=== PATIENT | female | born 1980 ===

== ENCOUNTER → 2020-02-18 10:36 | Outpatient (BNVA) | payer OTHER, SELFPAY | PROVIDERS: PCP Internal Medicine; Referring Provider Internal Medicine; Visit Provider Nurse Practitioner | DX: Z76.89 Persons encountering health services in other specified circumstances (principal) ==

== ENCOUNTER 2020-03-11 16:20 | Outpatient (REF) | payer OTHER, SELFPAY ==
--- NOTE | 2020-03-11 16:23 | MM_ITS ---
EXAMINATION: MM SCREENING DIGITAL MAMMOGRAPHY, BILATERAL CLINICAL INFORMATION: Screening. Asymptomatic. Age 39. No prior breast imaging. No family history history breast cancer. The lifetime risk of breast cancer based on the Tyrer-Cuzick Model is 12%. COMPARISON: None (current study represents initial baseline exam). TECHNIQUE: Digital mammography is performed in craniocaudal and mediolateral oblique views along with computer-aided detection (CAD). FINDINGS: The breasts are heterogeneously dense, which may obscure small masses (ACR BI-RADS breast composition Category c). There are no significant masses, abnormal calcifications, or other abnormalities. The axilla and skin contours are unremarkable. MM/MM screening mammo BI IMPRESSION: No mammographic evidence of malignancy. ASSESSMENT: BI-RADS 1: Negative RECOMMENDATION: Routine annual mammography screening. This patient's information was entered into a reminder system with a target due date for their next mammogram.
== END 2020-03-11 16:21 | disposition home or self-care (01) ==
LOC: HO.MAMMO 16:20
PROVIDERS: Visit Provider Internal Medicine
DX: Z12.31 Encounter for screening mammogram for malignant neoplasm of breast (principal)
CPT/HCPCS: 77067

== ENCOUNTER 2020-04-16 07:42 | Outpatient (REF) | payer OTHER, SELFPAY ==
--- NOTE | 2020-04-16 | US_ITS ---
EXAMINATION: US THYROID CLINICAL INFORMATION: Nontoxic multinodular goiter. COMPARISON: Ultrasound soft tissue head/neck thyroid dated 03/18/2019 and 03/28/2018 TECHNIQUE: Linear transducer thomas-scale and color Doppler examination with attention to the region of the thyroid. FINDINGS: SIZE: Measurements of the thyroid lobes and nodules are given in sagittal, anteroposterior and transverse dimensions respectively. Right Thyroid Lobe: 6.4 x 2.3 x 2.0 cm, volume 15.4 mL. Previously 5.8 x 2.3 x 2.1 cm, volume 14.7 mL. Parenchyma: The gland echotexture is heterogeneous. Thyroid vascularity is increased. Left Thyroid Lobe: 6.3 x 2.1 x 2.1 cm, volume 14.5 mL. Previously 5.8 x 1.9 x 2.2 cm, volume 12.7 mL. Parenchyma: The gland echotexture is heterogeneous. Thyroid vascularity is increased. Isthmus: 1.1 cm in maximum AP dimension. Previously 1.0 cm. RIGHT THYROID LOBE: There are 2 nodules seen. 1. Location: Superior. Size: 0.4 x 0.3 x 0.4 cm. Previous: New since the previous study. Nodule characteristics: Hyperechoic, irregular margins with intranodular flow. 2. Location: Middle. Size: 0.8 x 0.6 x 0.7 cm. Previous: 0.6 x 0.3 x 0.4 cm. Nodule characteristics: Heterogenous, irregular shaped with hyperechoic rind and intranodular flow. ISTHMUS: There are 2 nodules seen. 1. Location: Inferior isthmus. Size: 1.4 x 0.9 x 1.3 cm. Previous: 1.1 x 0.7 x 1.1 cm. Nodule characteristics: Hyperechoic, heterogenous, irregular shaped with hyperechoic rind and peripheral flow. 2. Location: Right inferior isthmus. Size: 0.8 x 0.6 x 0.7 cm. Previous: 0.7 x 0.4 x 0.5 cm. Nodule characteristics: Hyperechoic, irregular shaped, heterogenous with peripheral flow. LEFT THYROID LOBE: There is 1 nodule seen. 1. Location: Inferior/lateral. Size: 0.7 x 0.8 x 0.6 cm. Previous: New since the previous study. Nodule characteristics: Hyperechoic, heterogenous, irregular shaped with hyperechoic rind and intranodular flow. NODES: No lymphadenopathy is seen in the tissue surrounding the thyroid gland. US/US thyroid IMPRESSION: A large nodule in lower isthmus has minimally increased in size. There are new and old subcentimeter nodules in the right and left lobe which are nonsuspicious. Recommend continued yearly followup.
== END 2020-04-16 07:43 | disposition home or self-care (01) ==
LOC: HO.US 07:42
PROVIDERS: PCP Internal Medicine; Visit Provider Internal Medicine Endocrinology, Diabetes & Metabolism
DX: E04.2 Nontoxic multinodular goiter (principal)
CPT/HCPCS: 76536

== ENCOUNTER 2020-04-21 07:07 | Outpatient (REF) | payer OTHER, SELFPAY ==
[2020-04-21 08:26] LABS: Alanine Aminotransferase 22 U/L (0-31); Albumin Level 4.2 g/dL (3.5-5.0); Alkaline Phosphatase 52 U/L (39-117); Anion Gap 11 (12-20); Aspartate Amino Transferase 27 U/L (5-31); Bilirubin Total 0.9 mg/dL (0.0-1.0); Blood Urea Nitrogen 15 mg/dL (9-16); Carbon Dioxide 29 mmol/L (22-29); Chloride 104 mmol/L (96-108); Cholesterol 208 mg/dL; Estimated Glomerular Filt Rate > 60; Glucose Fasting 104 mg/dL (60-99); HDL Cholesterol 53 mg/dL; LDL Cholesterol Calculated 142 mg/dl; Potassium 4.2 mmol/l (3.3-5.1); Sodium 140 mmol/L (135-145); Total Protein 7.2 g/dL (6.5-8.0); Triglycerides 69 mg/dL
== END 2020-04-21 07:08 | disposition home or self-care (01) ==
LOC: HO.LAB 07:07
PROVIDERS: Visit Provider Internal Medicine
DX: Z83.3 Family history of diabetes mellitus (principal)
CPT/HCPCS: 36415; 80053; 80061

== ENCOUNTER → 2020-04-22 07:30 | Outpatient (BNVA) | payer OTHER, SELFPAY | PROVIDERS: PCP Internal Medicine; Visit Provider Internal Medicine Endocrinology, Diabetes & Metabolism | DX: Z76.89 Persons encountering health services in other specified circumstances (principal) ==

== ENCOUNTER → 2020-05-11 14:16 | Outpatient (BNVA) | payer OTHER, SELFPAY | PROVIDERS: PCP Internal Medicine; Visit Provider Nurse Practitioner ==

== ENCOUNTER → 2020-10-15 15:10 | Outpatient (BNVA) | payer OTHER, SELFPAY | PROVIDERS: Visit Provider Nurse Practitioner ==

== ENCOUNTER 2020-10-21 07:36 | Outpatient (REF) | payer OTHER, SELFPAY ==
[2020-10-21 09:01] LABS: Estimated Average Glucose 117 mg/dL; Hemoglobin A1c % 5.7 %
[2020-10-21 09:33] LABS: Free T4 (Free Thyroxine) 0.93 ng/dL (0.71-1.85); Thyroid Stimulating Hormone 2.73 uIU/mL (0.32-4.0); Vitamin D 25-OH Total 18.4 ng/mL (>30)
== END 2020-10-21 07:37 | disposition home or self-care (01) ==
LOC: HO.LAB 07:36
PROVIDERS: PCP Internal Medicine; Visit Provider Internal Medicine Endocrinology, Diabetes & Metabolism
DX: E03.8 Other specified hypothyroidism (principal); E06.3 Autoimmune thyroiditis; E04.2 Nontoxic multinodular goiter; E55.9 Vitamin D deficiency, unspecified; R73.01 Impaired fasting glucose
CPT/HCPCS: 36415; 82306; 83036; 84439; 84443

== ENCOUNTER 2020-10-28 09:45 | Outpatient (REF) | payer OTHER, SELFPAY | END 2020-10-28 09:46 | disposition home or self-care (01) | LOC: HO.LNP 09:45 | PROVIDERS: Visit Provider Nurse Practitioner | DX: D12.6 Benign neoplasm of colon, unspecified (principal) | CPT/HCPCS: 87338 ==

== ENCOUNTER 2021-01-26 06:35 | Day surgery (SDC) | payer OTHER, SELFPAY ==
[2021-01-21 10:28] VITALS: BMI 25.4
--- NOTE | 2021-01-25 08:19 | HO.ANESPROP2 ---
Documented by User: Sana Dyson NP 01/25/21 08:22 HPI - Anesthesia Eval Consult details Narrative: 40yo F for ?Colonoscopy PMFSH Active Problems Active Problems: All Active Problems (Updated 11/04/20 @ 17:00 by CHAY Serrato) Irritable bowel syndrome with both constipation and diarrhea (Acute) Abdominal bloating (Acute) Tubular adenoma of colon (Acute) H. pylori infection (Acute) Elevated fasting glucose (Acute) Non-toxic multinodular goiter (Acute) Family history of diabetes mellitus (Acute) Physical exam (Acute) GERD (gastroesophageal reflux disease) (Acute) Hypovitaminosis D (Acute) Hypothyroidism (Acute) Past Medical History Medical History (Updated 11/04/20 @ 17:00 by CHAY Serrato) Constipation by delayed colonic transit Elevated fasting glucose Family history of diabetes mellitus GERD (gastroesophageal reflux disease) Hypothyroidism Hypovitaminosis D Non-toxic multinodular goiter Physical exam Family History Family History (Updated 02/18/20 @ 10:44 by SUZANNE Garcia) Father Asthma Mother No problems noted. Maternal Aunt Uterine cancer Brother Murder Sister Fibromyalgia Sister Lung collapse Maternal Grandmother Diabetes Stroke Paternal Aunt Diabetes Hypertension Maternal Uncle Cancer Surgical History Surgical History (Updated 01/21/21 @ 10:28 by Eveline Lacey RN) History of laparoscopy Hx of colonoscopy Social History Social History (Updated 10/21/20 @ 07:41 by SUZANNE eBal) Alcohol intake: current Alcohol intake frequency: does not drink Patient Tobacco Use Status: Never used Tobacco Are you DNR?: No Advance Directives: No Advance Directives Information Provided: No (mailed) Advance Directives on File: No Patient : No FDLMP: 01/11/21 : No Poor oral hygiene: No Meds Allergies Allergy/AdvReac Type Severity Reaction Status Date / Time shellfish derived Allergy Severe ANAPHYLAXIS Verified 10/15/20 15:20 [SHELLFISH DERIVED] levothyroxine sodium Allergy Intermediate dizziness, Verified 01/21/21 10:27 abdominal pain Exam Exam Date and Time: January 25, 2021 0819 Height,Weight and Vital Signs: Height 5 ft 3 in Weight 65.317 kg Assessment and Plan Assessment Anesthesia Assessment: Chart Reviewed Documented by User: Silvestre Jiang MD 01/26/21 07:01 PMFSH Past Medical History Medical History (Updated 11/04/20 @ 17:00 by CHAY Serrato) Constipation by delayed colonic transit Elevated fasting glucose Family history of diabetes mellitus GERD (gastroesophageal reflux disease) Hypothyroidism Hypovitaminosis D Non-toxic multinodular goiter Physical exam Family History Family History (Updated 02/18/20 @ 10:44 by SUZANNE Garcia) Father Asthma Mother No problems noted. Maternal Aunt Uterine cancer Brother Murder Sister Fibromyalgia Sister Lung collapse Maternal Grandmother Diabetes Stroke Paternal Aunt Diabetes Hypertension Maternal Uncle Cancer Surgical History Surgical History (Updated 01/21/21 @ 10:28 by Eveline Lacey RN) History of laparoscopy Hx of colonoscopy Social History Social History (Updated 10/21/20 @ 07:41 by SUZANNE Beal) Alcohol intake: current Alcohol intake frequency: does not drink Patient Tobacco Use Status: Never used Tobacco Are you DNR?: No Advance Directives: No Advance Directives Information Provided: No (mailed) Advance Directives on File: No Patient : No FDLMP: 01/11/21 : No Poor oral hygiene: No Meds Allergies Allergy/AdvReac Type Severity Reaction Status Date / Time shellfish derived Allergy Severe ANAPHYLAXIS Verified 10/15/20 15:20 [SHELLFISH DERIVED] levothyroxine sodium Allergy Intermediate dizziness, Verified 01/21/21 10:27 abdominal pain Exam Airway Mallampati Class: I TM Dist: >3cm Neck ROM: Full
[2021-01-26 06:54] LABS: UPreg QC Valid YES; Urine Pregnancy NEGATIVE (NEGATIVE)
[2021-01-26 07:08] VITALS: BP 97/63; PULSE 65; RESP 16; TEMP 36.1; O2SAT 97
[2021-01-26] MEDS: Lactated Ringers 1,000 ML 100 ML IVCONT (07:12)
--- NOTE | 2021-01-26 07:19 | P.HPSUR_ITS ---
Pre-Procedural Eval Section A Date of Service: 01/26/21 The patient is an INPATIENT: No The History & Physical has been completed within 30 days and I have reviewed it.: No Section B Chief Complaint: mixed irritable bowel syndrome Details of Present Illness: Colon cancer screening, IBS with diarrhea and constipation Relevant Family History (Specify if Yes): No Relevant Social History: None Present Medications: see Short Stay Collaborative assessment Medical History: Significant History (Constipation by delayed colonic transit E levated fasting glucose Family history of diabetes mellitus GERD (gastroesophageal reflux disease) Hypothyroidism Hypovitaminosis D Non-toxic multinodular goiter Physical exam) History of Previous Operations: Relevant previous surgery/procedure and date(s) (History of laparoscopy Hx of colonoscopy) Allergies: Allergies Allergy/AdvReac Type Severity Reaction Status Date / Time shellfish derived Allergy Severe ANAPHYLAXIS Verified 10/15/20 15:20 [SHELLFISH DERIVED] levothyroxine sodium Allergy Intermediate dizziness, Verified 01/21/21 10:27 abdominal pain Review of Systems Sugical H&P ROS: Negative: Constitution, Cardiovascular, Respiratory and Gastrointestinal Exam Surgical H&P Exam: Normal: Heart, Normal: Lungs, Normal: Extremities and Normal: Abdomen Plan Diagnosis/Plan: Unchanged I have reviewed the history and physical and performed a pertinent physical examination on my patient. No changes have occurred unless specified.
--- NOTE | 2021-01-26 07:21 | P.OP_ITS ---
Operative Note Operative Note Date of Service: 01/26/21 Narrative: Pre-op diagnosis:?Colon cancer screening, history of colon polyps, IBS Post-op diagnosis:?other (Colon polyp, diverticulosis) Procedure:? COLONOSCOPY TILL CECUM WITH BIOPSIES Consent: Indications for the procedure and potential complications of bleeding, perforation, reaction to medications and missed diagnosis were discussed with the patient and informed consent was obtained. Instrument: Olympus PCF H 190 L variable stiffness pediatric colonoscope Monitoring: Vital signs and clinical assessment, intermittent blood pressure monitoring, continuous EKG monitoring, Pulse oximetry and Carbon Dioxide monitoring were done throughout the procedure. Colon withdrawl time was 12 minutes. Procedure: The patient was placed in the left lateral decubitis position and pre-procedure medications were administered. After a digital rectal examination of the ano-rectum, the video colonoscope was inserted into the rectum and advanced through the colon to the cecum. The colonoscope was slowly withdrawn in a retrograde panoramic fashion and the colon mucosa was carefully examined including a retroflexed view of the rectum. Findings and interventions are described below. Procedure Difficulty: Without difficulty Findings: Terminal Ileum: Not evaluated Cecum:? Normal Ascending Colon:? Normal Transverse Colon:? Normal Descending Colon:? Moderate diverticulosis Sigmoid Colon:? A 2-3 mm diminutive polyp removed with the cold biopsy. ?Moderate diverticulosis Rectum:? Normal Ano-rectum:? Normal Colon preparation:? Good? Impression and Post Procedure Diagnosis: Colonoscopy Findings: One tiny polyp removed Random biopsies were obtained from the colon to check for microscopic colitis Moderate diverticulosis seen in the left colon Plan: Await pathology results Patient has an appointment on 02/09/21 in the GI Clinic with? Rika Velazquez NP . Repeat Colonoscopy interval based on path results - in 5 years if polyps are adenomatous and due to a hx of colon polyps. Above findings were reviewed with the patient and colon polyps and diverticulosis handouts were given in the discharge area Surgeon:?Siena Castorena MD Anesthesia:?MAC Was an Machine Design Teacher used for this Procedure?:?Yes Machine Design Teacher:?Aimee Regalado Estimated blood loss (mL):?0 Pathology:?other (A. RANDOM COLON BIOPSIES, R/O MICROSCOPIC COLITIS? B. SIGMOID POLYP) Condition:?stable Disposition:?PACU
[2021-01-26 08:14] VITALS: BP 97/60; PULSE 70; RESP 16; TEMP 36.4; O2SAT 98
[2021-01-26 08:30] VITALS: BP 97/59; PULSE 58; RESP 16; TEMP 36.4; O2SAT 99
[2021-01-26 08:45] VITALS: BP 96/61; PULSE 62; RESP 16; TEMP 36.4; O2SAT 99
== END 2021-01-26 09:54 | disposition home or self-care (01) ==
PROVIDERS: Nurse Practitioner; PCP Internal Medicine; Visit Provider Internal Medicine Gastroenterology
PROC: 0DJD8ZZ Inspection of Lower Intestinal Tract, Via Natural or Artificial Opening Endoscopic (ICD-10-PCS; CPT 45378; principal; 2021-01-26 07:30)
DX: Z12.11 Encounter for screening for malignant neoplasm of colon (principal); Z86.010 Personal history of colon polyps; K63.5 Polyp of colon; K58.2 Mixed irritable bowel syndrome; K57.30 Diverticulosis of large intestine without perforation or abscess without bleeding; K59.01 Slow transit constipation; K21.9 Gastro-esophageal reflux disease without esophagitis; E03.9 Hypothyroidism, unspecified; Z88.8 Allergy status to other drugs, medicaments and biological substances; Z79.899 Other long term (current) drug therapy
CPT/HCPCS: 45380; 81025; 88305; J3010

== ENCOUNTER → 2021-02-09 11:02 | Outpatient (BNVA) | payer OTHER, SELFPAY | PROVIDERS: PCP Internal Medicine; Referring Provider Internal Medicine; Visit Provider Nurse Practitioner ==

== ENCOUNTER 2021-03-19 17:35 | Outpatient (REF) | payer OTHER, SELFPAY | END 2021-03-19 17:36 | disposition home or self-care (01) | LOC: HO.LNP 17:35 | PROVIDERS: Visit Provider Nurse Practitioner | DX: A04.8 Other specified bacterial intestinal infections (principal) | CPT/HCPCS: 87338 ==

== ENCOUNTER → 2021-03-25 09:25 | Outpatient (BNVA) | payer OTHER, SELFPAY | PROVIDERS: PCP Internal Medicine; Referring Provider Internal Medicine; Visit Provider Nurse Practitioner ==

== ENCOUNTER → 2021-05-04 09:15 | Outpatient (BNVA) | payer OTHER, SELFPAY | PROVIDERS: PCP Internal Medicine; Referring Provider Internal Medicine; Visit Provider Nurse Practitioner ==

== ENCOUNTER 2021-06-08 08:48 | Outpatient (REF) | payer OTHER, SELFPAY ==
[2021-06-08 08:29] LABS: MANUAL DIFF FLAG NO
[2021-06-08 08:50] LABS: Basophils Percent Auto 0.7 % (0-2); Eosinophils Absolute Auto 0.2 X10*3/uL (0.0-0.4); Eosinophils Percent Auto 3.4 % (0-4); Hematocrit 41.6 % (37.0-47.0); Hemoglobin 12.7 g/dl (12.0-16.0); Imm Gran Abs Auto 0.01 X10*3/uL (0.00-0.03); Imm Gran Pct Auto 0.2 % (0.0-0.4); Lymphocytes Absolute Auto 1.6 X10*3/uL (1.2-4.9); Mean Corpuscular HGB Conc 30.5 g/dl (31.0-35.0); Mean Corpuscular Hemoglobin 25.9 pg (27.0-33.0); Mean Corpuscular Volume 84.9 fL (80.0-98.0); Mean Platelet Volume 10.3 fL (9.4-12.3); Monocytes Absolute Auto 0.4 X10*3/uL (0.1-1.2); Monocytes Percent Auto 7.6 % (2-11); Neutrophils Absolute Auto 3.3 x10*3/uL (2.0-8.3); Neutrophils Percent Auto 60.1 % (45-73); Platelet Count 248 X10*3/uL (160-400); Red Cell Distribution Width 14.4 % (11.0-16.0); White Blood Count 5.5 X10*3/uL (4.8-10.8)
[2021-06-08 09:20] LABS: Alanine Aminotransferase 18 U/L (0-31); Albumin Level 4.3 g/dL (3.5-5.0); Alkaline Phosphatase 55 U/L (39-117); Anion Gap 12 (12-20); Aspartate Amino Transferase 25 U/L (5-31); Bilirubin Total 0.9 mg/dL (0.0-1.0); Blood Urea Nitrogen 15 mg/dL (9-16); Calcium 9.5 mg/dL (8.4-10.2); Carbon Dioxide 27 mmol/L (22-29); Chloride 102 mmol/L (96-108); Cholesterol 228 mg/dL; Estimated Glomerular Filt Rate > 60; Glucose Fasting 100 mg/dL (60-99); HDL Cholesterol 54 mg/dL; LDL Cholesterol Calculated 151 mg/dl; Potassium 4.3 mmol/L (3.3-5.1); Sodium 137 mmol/L (135-145); Total Protein 7.6 g/dL (6.5-8.0); Triglycerides 117 mg/dL
[2021-06-08 09:41] LABS: Free T4 (Free Thyroxine) 1.19 ng/dL (0.71-1.85)
[2021-06-12 12:07] LABS: Vitamin D 25-OH, D2 <4 ng/mL; Vitamin D 25-OH, D3 25 ng/mL; Vitamin D 25-OH, Total 25 ng/mL (30-100)
== END 2021-06-08 08:49 | disposition home or self-care (01) ==
LOC: HO.LAB 08:48
PROVIDERS: Absent Provider Internal Medicine Endocrinology, Diabetes & Metabolism; PCP Internal Medicine; Visit Provider Internal Medicine
DX: E55.9 Vitamin D deficiency, unspecified (principal); D64.9 Anemia, unspecified; E04.2 Nontoxic multinodular goiter; K21.9 Gastro-esophageal reflux disease without esophagitis; E78.5 Hyperlipidemia, unspecified
CPT/HCPCS: 36415; 80053; 80061; 82306; 84439; 84443; 85025

== ENCOUNTER 2021-07-08 14:47 | Outpatient (REF) | payer OTHER, SELFPAY ==
--- NOTE | ~2021-07-08 | US_ITS ---
EXAMINATION: US THYROID CLINICAL INFORMATION: Nontoxic multinodular goiter. COMPARISON: Thyroid ultrasound 04/16/2020. TECHNIQUE: Linear transducer grayscale and color Doppler examination with attention to the region of the thyroid. FINDINGS: SIZE: Measurements of the thyroid lobes and nodules are given in sagittal, anteroposterior and transverse dimensions respectively. Right Thyroid Lobe: 6.3 x 2.5 x 2.1 cm, volume 17.3 mL. Previously measured 6.4 x 2.3 x 2.0 and volume 15.4 mL. Parenchyma: The gland echotexture is heterogeneous. Thyroid vascularity is hypervascular. Left Thyroid Lobe: 6.1 x 2.0 x 2.2 cm, volume 14.0 mL. Previously measured 6.3 x 2.1 x 2.1 cm and volume 14.5 mL Parenchyma: The gland echotexture is heterogeneous. Thyroid vascularity is hypervascular. Isthmus: 1.2 cm in maximum AP dimension. Previously measured 1.1 cm. The gland is diffusely heterogeneous with no distinct nodules visualized hence not measured. NODES: No lymphadenopathy is seen in the tissue surrounding the thyroid gland. US/US thyroid IMPRESSION: Very heterogeneous enlarged thyroid gland with no distinct nodules seen at this time. Recommend annual follow-up. ACR TI-RADS RECOMMENDATION REFERENCE: Ultrasound-guided fine-needle aspiration, followup ultrasound, no further follow up. * TR1 (0 point) and TR 2 (2 points): No FNA or follow up * TR3 (3 points): FNA if more than or equal to 2.5 cm in maximum dimension, followup ultrasound in 1, 3 and 5 years if 1.5 to 2.4 cm in maximum dimension. * TR4 (4-6 points): FNA if more than or equal to 1.5 cm in maximum dimension, followup ultrasound in 1, 2, 3 and 5 years if 1 to 1.4 cm in maximum dimension. * TR5 (more than or equal to 7 points): FNA if more than or equal to 1 cm in maximum dimension, followup ultrasound every year for 5 years if 0.5 to 0.9 cm in maximum dimension. * TR3, TR4 or TR5 nodules that are below the size threshold for follow up receive no follow up.
== END 2021-07-08 14:48 | disposition home or self-care (01) ==
LOC: HO.US 14:47
PROVIDERS: PCP Internal Medicine; Visit Provider Internal Medicine
DX: E04.2 Nontoxic multinodular goiter (principal)
CPT/HCPCS: 76536

== ENCOUNTER → 2021-08-03 13:57 | Outpatient (BNVA) | payer OTHER, SELFPAY | PROVIDERS: PCP Internal Medicine; Referring Provider Internal Medicine; Visit Provider Nurse Practitioner | DX: K21.9 Gastro-esophageal reflux disease without esophagitis (principal); K59.01 Slow transit constipation | CPT/HCPCS: 99212 ==

== ENCOUNTER → 2021-10-29 13:39 | Outpatient (BNVA) | payer OTHER, SELFPAY | PROVIDERS: PCP Internal Medicine; Visit Provider Internal Medicine Endocrinology, Diabetes & Metabolism | DX: E03.8 Other specified hypothyroidism (principal); E06.3 Autoimmune thyroiditis; Z79.899 Other long term (current) drug therapy | CPT/HCPCS: 99212 ==

== ENCOUNTER 2021-12-07 07:11 | Outpatient (REF) | payer OTHER, SELFPAY ==
[2021-12-07 08:14] LABS: Cholesterol 217 mg/dL; HDL Cholesterol 59 mg/dL; LDL Cholesterol Calculated 134 mg/dl; Triglycerides 120 mg/dL
[2021-12-07 08:36] LABS: Thyroid Stimulating Hormone 4.22 uIU/mL (0.32-4.0)
[2021-12-10 14:51] LABS: Vitamin D 25-OH, D2 <4 ng/mL; Vitamin D 25-OH, D3 21 ng/mL; Vitamin D 25-OH, Total 21 ng/mL (30-100)
== END 2021-12-07 07:12 | disposition home or self-care (01) ==
LOC: HO.LAB 07:11
PROVIDERS: PCP Internal Medicine; Visit Provider Internal Medicine
DX: E04.2 Nontoxic multinodular goiter (principal); E78.5 Hyperlipidemia, unspecified; E55.9 Vitamin D deficiency, unspecified
CPT/HCPCS: 36415; 80061; 82306; 84443

== ENCOUNTER 2023-01-12 15:09 | Outpatient (AMB) | payer OTHER, SELFPAY ==
[2023-01-12 15:17] VITALS: BP 118/68; BMI 27.1
--- NOTE | 2023-01-12 15:17 | MHC.PC.OV ---
Vital Signs 01/12/23 15:17 Height 5 ft 3 in Weight 153 lb BMI 27.1 BP 118/68 Blood Pressure Location Rt brachial Intake Visit Reasons: Transfer of care Dr. Berger Intake Note: Patient is here as a new patient with concern of thyroid disease blood work. She states she is feeling tired more than usual. She would like refill of Senna and omeprazole. Is last menstrual period known: Yes Last menstrual period: 12/21/22 Allergies shellfish derived [SHELLFISH DERIVED] Allergy (Severe, Verified 01/12/23 15:21) ANAPHYLAXIS levothyroxine sodium Adverse Reaction (Intermediate, Verified 01/12/23 15:21) hair loss, dry skin Tobacco use date assessed: 01/12/23 Dental Screening Dental Screen Date: 01/12/23 Did you have a dental visit in the last 12 months?: Yes Did you have a dental problem in the last 6 months where you did not have access to dental care?: No Was dental information given to patient?: Patient has dentist HPI Transfer of care Dr. Berger HPI Details New patient/Transfer of Care Prior PCP:?Dr. Berger Last office visit/CPE: Last physical 2020 Acute issue(s): Abd. bloating PMHx: Dyslipidemia, Elevated fasting glucose, GERD, Hypothyroidism SurgHx: Laparoscopy for endometriosis FHx: Sister: Thyroid problems & surgery. HTN SocHx: Nonsmoker. EtOH none. No drugs. PFSH Medical History Dyslipidemia Elevated fasting glucose Non-toxic multinodular goiter Family history of diabetes mellitus Physical exam GERD (gastroesophageal reflux disease) Hypovitaminosis D Constipation by delayed colonic transit Hypothyroidism Surgical History Hx of colonoscopy History of laparoscopy Family History Father Asthma Mother No problems noted. Maternal Aunt Uterine cancer Brother Murder Sister Fibromyalgia Sister Lung collapse Maternal Grandmother Diabetes Stroke Paternal Aunt Diabetes Hypertension Maternal Uncle Cancer Social History Housing: Apartment Alcohol intake: never Patient Tobacco Use Status: Never used Tobacco Tobacco use type: Cigarette e-Cigarette/Vaping Use: Never Used Second Hand Smoke Exposure: No service: No Current occupational status: unemployed Cognitive needs: No Hearing needs: No Vision needs: No Female Reproductive History Menstrual Date of last menstrual period: 12/21/22 Questionnaire PHQ-9 Over the last 2 weeks, how often have you been bothered by any of the following problems? 1. Little interest or pleasure in doing things: not at all 2. Feeling down, depressed, or hopeless: not at all 3. Trouble falling or staying asleep, or sleeping too much: not at all 4. Feeling tired or having little energy: more than half the days 5. Poor appetite or overeating: several days 6. Feeling bad about yourself - or that you are a failure or have let yourself or your family down: not at all 7. Trouble concentrating on things, such as reading the newspaper or watching television: not at all 8. Moving or speaking so slowly that other people could have noticed. Or the opposite - being so fidgety or restless that you have been moving around a lot more than usual: not at all 9. Thoughts that you would be better off or of hurting yourself in some way: not at all Total score: 3 Source: Developed by Drs. Hayder Golden, Ida Warner, Geoff aLkhani and colleagues, with an educational steve from [employer]. Thrive Questionnaire Date Thrive assessed: 12/08/21 I am a: Patient What is your living situation today?: I have a steady place to live Within the past 12 months, did the food you bought not last and you didn't have the money to get more?: Never true Within the past 12 months, did you worry whether your food would run out before you got money to buy more?: Never true Do you have trouble paying for medicines?: No Do you have trouble getting transportation to medical appointments?: No Do you have trouble paying your heating and electricity bill?: No Do you have trouble taking care of your child, family member or friend?: No Do you have trouble with day-to-day activities such as bathing, preparing meals, shopping, managing finances, etc.?: No Are you currently unemployed and looking for a job?: No Are you interested in more education?: Yes AUDIT C Alcohol Use Questionnaire (AUDIT-C) 1. How often do you have a drink containing alcohol?: Never 3. How often do you have six or more drinks on one occasion?: Never Total Score: 0 EDA-7 AMB Questionnaire EDA-7 Date EDA - 7 assessed: 01/12/23 Feeling nervous, anxious, or on edge: 0 = Not at all Not being able to stop or control worryin = Not at all Worrying too much about different things: 0 = Not at all Trouble relaxin = Not at all Being so restless that it is hard to sit still: 0 = Not at all Becoming easily annoyed or irritable: 0 = Not at all Feeling afraid as if something awful might happen: 0 = Not at all Total EDA-7 score (0-4 normal; 5-9 mild; 10-14 moderate; 15-21 severe): 0 Source: Developed by Drs. Hayder Golden, Ida Warner, Geoff Lakhani and colleagues, with an educational steve from [employer]. Review of Systems Const Denies chills, Denies fatigue, Denies fever(s), Denies headache(s) and Denies weakness ENT Denies dizziness and Denies headache(s) Card Denies chest pain, Denies lightheadedness, Denies dyspnea and Denies other (Palpitations) Resp Denies cough, Denies dyspnea, Denies wheezing and Denies other ( shortness of breath) Musc Denies numbness and Denies tingling Neuro Denies dizziness, Denies headache(s), Denies numbness, Denies tingling, Denies paresthesias and Denies weakness Psych Denies anxiety and Denies depression Endo Denies fatigue Aller/Immun Denies wheezing Physical exam (Primary Care) Vital Signs: Last Vital Signs BP 118/68 01/12/23 15:17 BMI result Body Mass Index 27.1 Tobacco/Smoking Status: Tobacco use Status Tobacco use date assessed 01/12/23 01/12/23 15:32 Patient Tobacco Use Status Never used Tobacco 01/12/23 15:26 Tobacco use type Cigarette 01/12/23 15:26 e-Cigarette/Vaping Use Never Used 01/12/23 15:26 PHQ-9: PHQ-9 Score PHQ-9: Total score 3 01/12/23 15:38 Thrive Assessment: Date of Thrive Assessment Date Thrive assessed 12/08/21 01/12/23 15:26 Const General: no acute distress and well developed Nutritional Appearance: well nourished Orientation/consciousness: patient oriented x3 [facility] Head: Yes normocephalic and Yes atraumatic Eyes General: appearance normal, both eyes and all related structures Pupils: Equal, round and reactive pupils present EOM: EOMs intact bilaterally Resp Effort & Inspection: normal respiratory effort Auscultation: clear to auscultation bilaterally Cardio Rate: regular rate Rhythm: regular rhythm Heart sounds: S1 normal heart sound present, S2 normal heart sound present, no gallops, no murmurs and no rubs Neuro General: patient oriented x3 and gait normal Cranial nerves: Yes Equal, round and reactive pupils present Psych Affect: normal affect Assessment and Plan Assessment & Plan (1) Palpitations: Code(s): R00.2 - Palpitations Plan: Palpitations?and?patient?mentions?some?episodes?of?presyncope. No?associated?chest?pain,?chest?pressure?shortness?of?breath,?diaphoresis?or?nausea. She?also?notes?significant?anxiety. Cardiac?auscultation?reveals?regular?rate?and?rhythm EKG: ?Normal?sinus?rhythm,?normal?axis,?normal?intervals,?no?hypertrophy,?no?ST-T-wave?changes. Appears?to?be?likely?due?to?anxiety. 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 Continue?Synthroid - will?adjust?if?needed (4) Elevated fasting glucose: Code(s): R73.01 - Impaired fasting glucose Plan: Check?lab (5) Anxiety: Code(s): F41.9 - Anxiety disorder, unspecified Plan: Patient?notes?significant?stress?and?stressors Acknowledges?some?anxiety?on?questioning Referred?to?nurse?navigator?to?help?connect?her?with?a?therapist (6) Abdominal bloating: Code(s): R14.0 - Abdominal distension (gaseous) Plan: Diarrhea,?constipation,?some?occasional?acid?reflux?and?some?bloating. Patient?also?notes?some?stress?and?anxiety.??Possible?IBS Increase?hydration Try?soluble?fiber?and?I?will?send?a?script?for?FiberCon. If?not?improving?will?discuss?referral?to?GI (7) Dyslipidemia: Code(s): E78.5 - Hyperlipidemia, unspecified Plan: Check?lab (8) Laboratory exam ordered as part of routine general medical examination: Code(s): Z00.00 - Encounter for general adult medical examination without abnormal findings Plan: Check?labs Orders: Orders Comprehensive [place]. Panel Fast Today Z00.00 - Encounter for general adult medical examination without abnormal findings Triiodothyronine T3 Total Today E03.9 - Hypothyroidism, unspecified Thyroid Stimulating Hormone Today E03.9 - Hypothyroidism, unspecified Microalbumin, Random (w Creat) Today I10 - Essential (primary) hypertension Free T4 (Free Thyroxine) Today E03.9 - Hypothyroidism, unspecified UA and rflx microscopic Today Z00.00 - Encounter for general adult medical examination without abnormal findings Referrals Nurse Navigator Referral F41.9 - Anxiety disorder, unspecified Medications: New calcium polycarbophil (FiberCon) 625 mg PO DAILY 30 days 30 tabs 2RF F41.9 - Anxiety disorder, unspecified Coding Level of Care Code Est Pt Level 3 (17349) Diagnoses Palpitations R00.2 Pre-syncope R55 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
== END 2023-01-12 16:58 | disposition home or self-care (01) ==
PROVIDERS: PCP Internal Medicine; Visit Provider Family Medicine
DX: R00.2 Palpitations (principal); R55 Syncope and collapse; E03.8 Other specified hypothyroidism; E06.3 Autoimmune thyroiditis; R73.01 Impaired fasting glucose; F41.9 Anxiety disorder, unspecified; R14.0 Abdominal distension (gaseous); E78.5 Hyperlipidemia, unspecified; Z00.00 Encounter for general adult medical examination without abnormal findings
CPT/HCPCS: 99213

== ENCOUNTER 2023-03-29 07:31 | Outpatient (REF) | payer OTHER, SELFPAY ==
[2023-03-29 08:06] LABS: Appearance Urine Clear; Color Urine Yellow; Glucose Urine UA Negative (Negative); Leukocyte Esterase Urine Negative (Negative); Nitrite Urine Negative (Negative); PH 5.5 (5.0-9.0); Specific Gravity - Urine 1.025 (1.005-1.025); UMIC TRIGGER UA YES; Urine Blood Trace (Negative); Urine Ketones Negative (Negative); Urine Protein Negative (Neg-Trace)
[2023-03-29 08:13] LABS: Alanine Aminotransferase 16 U/L (0-31); Albumin Level 4.1 g/dL (3.5-5.0); Alkaline Phosphatase 57 U/L (39-117); Anion Gap 13 (12-20); Aspartate Amino Transferase 20 U/L (5-31); Bilirubin Total 0.4 mg/dL (0.0-1.0); Blood Urea Nitrogen 21 mg/dL (9-16); Calcium 9.2 mg/dL (8.4-10.2); Carbon Dioxide 27 mmol/L (22-29); Chloride 104 mmol/L (96-108); Estimated Glomerular Filt Rate > 60; Glucose Fasting 108 mg/dL (60-99); Potassium 3.6 mmol/L (3.3-5.1); Sodium 140 mmol/L (135-145); Total Protein 7.5 g/dL (6.5-8.0)
[2023-03-29 08:15] LABS: Creatinine Urine 170.46 mg/dL; Microalbum/Creatinine Ratio Ur 4.6 ug/mg cr (<30)
[2023-03-29 08:31] LABS: Thyroid Stimulating Hormone 4.08 uIU/mL (0.32-4.0)
[2023-03-29 09:30] LABS: Bacteria Urine None Seen (None Seen); Hyaline Casts Urine 0-2 /LPF (0-2); RBC Urine 0-2 /HPF (0-2); WBC Urine 0-5 /HPF (0-5)
[2023-03-31 02:39] LABS: Triiodothyronine T3 Total 111 ng/dL (76-181)
== END 2023-03-29 07:32 | disposition home or self-care (01) ==
LOC: HO.LAB 07:31
PROVIDERS: PCP Family Medicine; Visit Provider Family Medicine
DX: Z00.00 Encounter for general adult medical examination without abnormal findings (principal); E03.9 Hypothyroidism, unspecified; I10 Essential (primary) hypertension
CPT/HCPCS: 36415; 80053; 81001; 81003; 82043; 82570; 84439; 84443; 84480

== ENCOUNTER 2024-01-10 13:31 | Emergency (ER) | payer OTHER, SELFPAY ==
--- NOTE | ~2024-01-10 | XR_ITS ---
EXAMINATION: XR CHEST CLINICAL INFORMATION: Chest pain COMPARISON: None available. TECHNIQUE: 2 views of the chest were obtained. FINDINGS: No significant abnormality is noted involving the heart, lungs, mediastinum, bony thorax or soft tissues. XR/XR chest 2V IMPRESSION: Unremarkable examination. Electronically signed by: Bob Duran MD 01/10/2024 03:33 PM EDT RP
--- NOTE | 2024-01-10 13:36 | ECG_ITS ---
Test Reason : CP Blood Pressure : / mmHG Vent. Rate : 067 BPM Atrial Rate : 067 BPM P-R Int : 148 ms QRS Dur : 080 ms QT Int : 404 ms P-R-T Axes : 050 008 036 degrees QTc Int : 426 ms Normal sinus rhythm Normal ECG No previous ECGs available Referred By: Deidre Hardy Electronically Signed By:RONALD SIERRA
[2024-01-10 13:49] VITALS: BP 100/45; PULSE 71; RESP 16; TEMP 36.7; O2SAT 98; BMI 26.4
--- NOTE | 2024-01-10 13:50 | ED.GENADULT ---
HPI - General Adult General Chief complaint: Chest Pain Stated complaint: cp-weakness Time Seen by Provider: 01/10/24 17:02 Related Data Home Medications ?Medication ?Instructions ?Recorded ?Confirmed multivitamin with minerals-folic tab PO 01/12/23 acid 120 mcg chewable tablet (Women's Multivitamin Gummies) Previous Rx's ?Medication ?Instructions ?Recorded nystatin 100,000 unit/gram topical 1 appl topical BID #30 grams 02/09/21 cream docusate sodium 100 mg capsule 100 mg PO BID PRN constipation 30 05/04/21 days #60 caps sennosides 8.6 mg tablet 17.2 mg (2 x 8.6 mg) PO BEDTIME 05/04/21 #60 tabs omeprazole 40 mg capsule,delayed 40 mg PO DAILY 90 days #90 caps 08/03/21 release cholecalciferol (vitamin D3) 50 50 mcg PO DAILY 90 days #90 caps 12/11/21 mcg (2,000 unit) capsule calcium polycarbophil 625 mg 625 mg PO DAILY 30 days #30 tabs 01/12/23 tablet (FiberCon) Synthroid 75 mcg tablet 75 mcg PO QAM #90 tabs 06/26/23 (levothyroxine) Allergies Allergy/AdvReac Type Severity Reaction Status Date / Time shellfish derived Allergy Severe ANAPHYLAXIS Verified 01/10/24 13:52 [SHELLFISH DERIVED] levothyroxine sodium AdvReac Intermediate hair loss, Verified 01/10/24 13:52 dry skin PMFSH Past Medical History Medical History Dyslipidemia Elevated fasting glucose Non-toxic multinodular goiter Family history of diabetes mellitus Physical exam GERD (gastroesophageal reflux disease) Hypovitaminosis D Constipation by delayed colonic transit Hypothyroidism Surgical History Hx of colonoscopy History of laparoscopy Family History Family History Father Asthma Mother No problems noted. Maternal Aunt Uterine cancer Brother Murder Sister Fibromyalgia Sister Lung collapse Maternal Grandmother Diabetes Stroke Paternal Aunt Diabetes Hypertension Maternal Uncle Cancer Social History Social History Housing: Apartment Alcohol intake: never Patient Tobacco Use Status: Never used Tobacco Tobacco use type: Cigarette e-Cigarette/Vaping Use: Never Used Second Hand Smoke Exposure: No Advance Directives: No Advance Directives Information Provided: No Do you have a plan to hurt others: No Plan service: No Current occupational status: unemployed Cognitive needs: No Hearing needs: No Vision needs: No Physical Exam ED Vital Signs: BMI result Body Mass Index 26.4 Course Course Course Narrative: This is a rapid medical exam performed by Maya Hardy NP: Additional HPI, ROS, PE not included below will be deferred to primary provider. Patient is a 43-year-old female with history of hypothyroidism, GERD, dyslipidemia presenting with chest pain since Monday, feels short of breath with speaking. Plan: labs, EKG, CXR Medical Decision Making Lab Data 01/10/24 14:09 01/10/24 14:09 Labs: Lab Results 01/10/24 Range/Units 14:09 WBC 4.6 L (4.8-10.8) X10*3/uL RBC 4.99 (4.20-5.50) X10*6/uL Hgb 13.0 (12.0-16.0) g/dl Hct 41.0 (37.0-47.0) % MCV 82.2 (80.0-98.0) fL MCH 26.1 L (27.0-33.0) pg MCHC 31.7 (31.0-35.0) g/dl RDW 13.5 (11.0-16.0) % Plt Count 248 (160-400) X10*3/uL MPV 9.6 (9.4-12.3) fL Immature Gran % (Auto) 0.4 (0.0-0.4) % Neut % (Auto) 57.0 (45-73) % Lymph % (Auto) 32.8 (20-40) % [place] % (Auto) 5.2 (2-11) % Eos % (Auto) 3.7 (0-4) % Baso % (Auto) 0.9 (0-2) % Lymph # (Auto) 1.5 (1.2-4.9) X10*3/uL [place] # (Auto) 0.2 (0.1-1.2) X10*3/uL Eos # (Auto) 0.2 (0.0-0.4) X10*3/uL Baso # (Auto) 0.0 (0.0-0.2) X10*3/uL Abs Immat Gran (auto) 0.02 (0.00-0.03) X10*3/uL Absolute Neuts (auto) 2.6 (2.0-8.3) x10*3/uL Absolute Nucleated RBC 0.000 (0.0-0.012) X10*3/uL Nucleated RBC % (auto) 0.0 (0.0-0.2) /100WBC PT 12.4 (10.9-12.4) SEC INR 1.1 (0.9-1.1) Sodium 142 (135-145) mmol/L Potassium 3.5 (3.3-5.1) mmol/L Chloride 108 (96-108) mmol/L Carbon Dioxide 25 (22-29) mmol/L Anion Gap 13 (12-20) BUN 18 H (9-16) mg/dL Creatinine 0.86 (0.5-1.4) mg/dL Estim Creat Clear Calc 77.0 Estimated GFR > 60 Random Glucose 135 H (60-115) mg/dL Calcium 9.9 D (8.4-10.2) mg/dL Total Bilirubin 0.7 (0.0-1.0) mg/dL AST 23 (5-31) U/L ALT 20 (0-31) U/L Alkaline Phosphatase 51 (39-117) U/L Troponin I High Sens < 2.7 (<3.5-17.0) ng/L Total Protein 7.6 (6.5-8.0) g/dL Albumin 4.4 (3.5-5.0) g/dL TSH 1.46 (0.32-4.0) uIU/mL Beta HCG, Quant < 2 mIU/mL Influenza Type A (PCR) NEGATIVE (Negative) Influenza Type B (PCR) NEGATIVE (Negative) RSV RNA Qual (PCR) NEGATIVE (Negative) SARS-CoV-2 RNA (RT-PCR) NEGATIVE (Negative) Discharge Plan Discharge Clinical Impression: Chest pain Patient Disposition: Home, Self-Care Instructions: Chest Pain (ED) Additional Instructions: You were seen and evaluated in the emergency room. Your vital signs were normal. ? Your blood work was normal. Your chest x-ray and EKG were normal. Please follow-up with your primary care doctor in the next 5-7 days. ? Please return to the emergency room if you develop any worsening symptoms including, but not limited to fever, chest pain or difficulty breathing. ? Prescriptions: No Action cholecalciferol (vitamin D3) 50 mcg (2,000 unit) capsule 50 mcg PO DAILY 90 Days Qty: 90 2RF levothyroxine [Synthroid] 75 mcg tablet 75 mcg PO QAM Qty: 90 2RF multivit with min-folic acid [Women's Multivitamin Gummies] 120 mcg tablet,chewable PO calcium polycarbophil [FiberCon] 625 mg tablet 625 mg PO DAILY 30 Days Qty: 30 2RF nystatin 100,000 unit/gram cream 1 appl topical BID Qty: 30 0RF sennosides 8.6 mg tablet 17.2 mg PO BEDTIME Qty: 60 6RF docusate sodium 100 mg capsule 100 mg PO BID PRN (Reason: constipation) 30 Days Qty: 60 6RF omeprazole 40 mg capsule,delayed release(DR/EC) 40 mg PO DAILY 90 Days Qty: 90 2RF Interventions: ED Discharge Assessment Last Done: 01/10/24 17:39 Discharge Date/Time: 01/10/24 17:40 Print Language: Icelandic
[2024-01-10 14:24] LABS: Basophils Percent Auto 0.9 % (0-2); Eosinophils Absolute Auto 0.2 X10*3/uL (0.0-0.4); Eosinophils Percent Auto 3.7 % (0-4); Imm Gran Abs Auto 0.02 X10*3/uL (0.00-0.03); Imm Gran Pct Auto 0.4 % (0.0-0.4); Lymphocytes Absolute Auto 1.5 X10*3/uL (1.2-4.9); Lymphocytes Percent Auto 32.8 % (20-40); MANUAL DIFF FLAG NO; Mean Corpuscular HGB Conc 31.7 g/dl (31.0-35.0); Mean Corpuscular Hemoglobin 26.1 pg (27.0-33.0); Mean Corpuscular Volume 82.2 fL (80.0-98.0); Mean Platelet Volume 9.6 fL (9.4-12.3); Monocytes Absolute Auto 0.2 X10*3/uL (0.1-1.2); Monocytes Percent Auto 5.2 % (2-11); Neutrophils Absolute Auto 2.6 x10*3/uL (2.0-8.3); Platelet Count 248 X10*3/uL (160-400); Red Blood Count 4.99 X10*6/uL (4.20-5.50); Red Cell Distribution Width 13.5 % (11.0-16.0); White Blood Count 4.6 X10*3/uL (4.8-10.8)
[2024-01-10 14:39] LABS: INTERNATIONAL NORM RATIO 1.1 (0.9-1.1); Prothrombin Time 12.4 SEC (10.9-12.4)
[2024-01-10 14:48] LABS: Alanine Aminotransferase 20 U/L (0-31); Albumin Level 4.4 g/dL (3.5-5.0); Alkaline Phosphatase 51 U/L (39-117); Anion Gap 13 (12-20); Aspartate Amino Transferase 23 U/L (5-31); Bilirubin Total 0.7 mg/dL (0.0-1.0); Blood Urea Nitrogen 18 mg/dL (9-16); Calcium 9.9 mg/dL (8.4-10.2); Carbon Dioxide 25 mmol/L (22-29); Chloride 108 mmol/L (96-108); Estimated Glomerular Filt Rate > 60; Glucose Random 135 mg/dL (60-115); Potassium 3.5 mmol/L (3.3-5.1); Sodium 142 mmol/L (135-145); Total Protein 7.6 g/dL (6.5-8.0)
[2024-01-10 14:50] LABS: Troponin-I High Sensitivity < 2.7 ng/L (<3.5-17.0)
[2024-01-10 15:02] LABS: Influenza A PCR NEGATIVE (Negative); Influenza B PCR NEGATIVE (Negative); Resp Syncy Virus RNA Qual PCR NEGATIVE (Negative); SARS COV2 PCR INHOUSE NEGATIVE (Negative)
[2024-01-10 15:03] LABS: HCG Quantitative < 2 mIU/mL; TSH reflex Free T4 1.46 uIU/mL (0.32-4.0)
[2024-01-10 16:21] VITALS: BP 126/50; PULSE 66; RESP 14; TEMP 36.8; O2SAT 100
--- NOTE | 2024-01-10 17:10 | ED.CHESTPAIN ---
HPI - Chest Pain General Chief Complaint: Chest Pain Stated Complaint: cp-weakness Time Seen by Provider: 01/10/24 17:02 Source: patient Mode of arrival: ambulatory Limitations: no limitations History of Present Illness HPI narrative: This is a 43-year-old woman with a past medical history of GERD, hypothyroidism who presents for evaluation of chest pain. Patient states that over the last week or so she has been very stressed at work. She reports experiencing intermittent chest pain. She states no diaphoresis or vomiting. He states no dyspnea. She states at times she wakes up in the mornings feeling just very agitated and feels like her heart is racing at that time. She states no syncope. She states no abdominal pain or back pain. She states no recent surgery or trauma. She states no previous DVT/PE. She states no hormone use/oral contraceptive. She states no hemoptysis. She states no leg swelling or pain. Related Data Home Medications ?Medication ?Instructions ?Recorded ?Confirmed multivitamin with minerals-folic tab PO 01/12/23 acid 120 mcg chewable tablet (Women's Multivitamin Gummies) Previous Rx's ?Medication ?Instructions ?Recorded nystatin 100,000 unit/gram topical 1 appl topical BID #30 grams 02/09/21 cream docusate sodium 100 mg capsule 100 mg PO BID PRN constipation 30 05/04/21 days #60 caps sennosides 8.6 mg tablet 17.2 mg (2 x 8.6 mg) PO BEDTIME 05/04/21 #60 tabs omeprazole 40 mg capsule,delayed 40 mg PO DAILY 90 days #90 caps 08/03/21 release cholecalciferol (vitamin D3) 50 50 mcg PO DAILY 90 days #90 caps 12/11/21 mcg (2,000 unit) capsule calcium polycarbophil 625 mg 625 mg PO DAILY 30 days #30 tabs 01/12/23 tablet (FiberCon) Synthroid 75 mcg tablet 75 mcg PO QAM #90 tabs 06/26/23 (levothyroxine) Allergies Allergy/AdvReac Type Severity Reaction Status Date / Time shellfish derived Allergy Severe ANAPHYLAXIS Verified 01/10/24 13:52 [SHELLFISH DERIVED] levothyroxine sodium AdvReac Intermediate hair loss, Verified 01/10/24 13:52 dry skin Review of Systems Review of Systems: ROS as per HPI PMFSH Past Medical History Medical History Dyslipidemia Elevated fasting glucose Non-toxic multinodular goiter Family history of diabetes mellitus Physical exam GERD (gastroesophageal reflux disease) Hypovitaminosis D Constipation by delayed colonic transit Hypothyroidism Surgical History Hx of colonoscopy History of laparoscopy Family History Family History Father Asthma Mother No problems noted. Maternal Aunt Uterine cancer Brother Murder Sister Fibromyalgia Sister Lung collapse Maternal Grandmother Diabetes Stroke Paternal Aunt Diabetes Hypertension Maternal Uncle Cancer Social History Social History Housing: Apartment Alcohol intake: never Patient Tobacco Use Status: Never used Tobacco Tobacco use type: Cigarette e-Cigarette/Vaping Use: Never Used Second Hand Smoke Exposure: No Advance Directives: No Advance Directives Information Provided: No Do you have a plan to hurt others: No Plan service: No Current occupational status: unemployed Cognitive needs: No Hearing needs: No Vision needs: No Physical Exam Vital Signs: Vital Signs: Last Vital Signs Temp 98.3 F 01/10/24 16:21 Pulse 66 01/10/24 16:21 Resp 14 01/10/24 16:21 BP 126/50 L 01/10/24 16:21 Pulse Ox 100 01/10/24 16:21 O2 Del Method Room Air 01/10/24 16:21 BMI result Body Mass Index 26.4 Gen: NAD, AOx3 HEENT: NCAT, EOMI, normal conjunctiva CV: RRR, no murmurs appreciated Pulm: CTAB, no increased work of breathing GI: Soft, NTND, no rebound, guarding or rigidity MSK: No asymmetrical calf edema/overlying skin changes/TTP Neuro: Grossly non focal Medical Decision Making Medical Decision Making MDM Narrative: Differential diagnosis includes, but is not limited to anxiety, panic attack, ACS, pneumothorax. Patient is afebrile and hemodynamically stable on room air. Exam is benign and reassuring. PERC 0. I reviewed and interpreted the patient's labs, EKG and chest x-ray as below. On re-examination, patient is well-appearing and in no acute distress. ?Patient states no chest pain at time of discharge. There is no indication for further emergent evaluation in this otherwise well-appearing patient as above. ?Patient is provided written and verbal instructions, educational materials, recommendations for outpatient follow-up, strict return precautions and teach back is performed. ?Patient states understanding and agreement with plan of care. ?Patient is discharged home in stable and improved condition. Admission/Observation Consideration of admission/observation: Escalation of care including admission/observation considered Lab Data MDM Lab Attestation statement: I reviewed the patient's lab results. 01/10/24 14:09 01/10/24 14:09 Labs: Lab Results 01/10/24 Range/Units 14:09 WBC 4.6 L (4.8-10.8) X10*3/uL RBC 4.99 (4.20-5.50) X10*6/uL Hgb 13.0 (12.0-16.0) g/dl Hct 41.0 (37.0-47.0) % MCV 82.2 (80.0-98.0) fL MCH 26.1 L (27.0-33.0) pg MCHC 31.7 (31.0-35.0) g/dl RDW 13.5 (11.0-16.0) % Plt Count 248 (160-400) X10*3/uL MPV 9.6 (9.4-12.3) fL Immature Gran % (Auto) 0.4 (0.0-0.4) % Neut % (Auto) 57.0 (45-73) % Lymph % (Auto) 32.8 (20-40) % [place] % (Auto) 5.2 (2-11) % Eos % (Auto) 3.7 (0-4) % Baso % (Auto) 0.9 (0-2) % Lymph # (Auto) 1.5 (1.2-4.9) X10*3/uL [place] # (Auto) 0.2 (0.1-1.2) X10*3/uL Eos # (Auto) 0.2 (0.0-0.4) X10*3/uL Baso # (Auto) 0.0 (0.0-0.2) X10*3/uL Abs Immat Gran (auto) 0.02 (0.00-0.03) X10*3/uL Absolute Neuts (auto) 2.6 (2.0-8.3) x10*3/uL Absolute Nucleated RBC 0.000 (0.0-0.012) X10*3/uL Nucleated RBC % (auto) 0.0 (0.0-0.2) /100WBC PT 12.4 (10.9-12.4) SEC INR 1.1 (0.9-1.1) Sodium 142 (135-145) mmol/L Potassium 3.5 (3.3-5.1) mmol/L Chloride 108 (96-108) mmol/L Carbon Dioxide 25 (22-29) mmol/L Anion Gap 13 (12-20) BUN 18 H (9-16) mg/dL Creatinine 0.86 (0.5-1.4) mg/dL Estim Creat Clear Calc 77.0 Estimated GFR > 60 Random Glucose 135 H (60-115) mg/dL Calcium 9.9 D (8.4-10.2) mg/dL Total Bilirubin 0.7 (0.0-1.0) mg/dL AST 23 (5-31) U/L ALT 20 (0-31) U/L Alkaline Phosphatase 51 (39-117) U/L Troponin I High Sens < 2.7 (<3.5-17.0) ng/L Total Protein 7.6 (6.5-8.0) g/dL Albumin 4.4 (3.5-5.0) g/dL TSH 1.46 (0.32-4.0) uIU/mL Beta HCG, Quant < 2 mIU/mL Influenza Type A (PCR) NEGATIVE (Negative) Influenza Type B (PCR) NEGATIVE (Negative) RSV RNA Qual (PCR) NEGATIVE (Negative) SARS-CoV-2 RNA (RT-PCR) NEGATIVE (Negative) Independent Interpretation I performed an independent interpretation of an: EKG and Plain X-Ray Interpretation: I independently reviewed and interpreted patient's EKG, which demonstrates sinus rhythm at 67 beats per minute, [place] 148, QRS 80, QTC 426, no STEMI I independently reviewed and interpreted the patient's chest x-ray, which demonstrates no focal consolidation, pleural effusions or pneumothorax Radiology Impression Discussion of test interpretation with radiology: I have reviewed the radiologist's reading. Radiologist Impression: XR/XR chest 2V IMPRESSION: Unremarkable examination. Electronically signed by: Bob Duran MD 01/10/2024 03:33 PM EDT RP Dictated By: Bob Duran MD Signed By: <Electronically signed by Bob Duran MD in OV> 01/10/24 1533 Discharge Plan Discharge Clinical Impression: Chest pain Patient Disposition: Home, Self-Care Instructions: Chest Pain (ED) Additional Instructions: You were seen and evaluated in the emergency room. Your vital signs were normal. ? Your blood work was normal. Your chest x-ray and EKG were normal. Please follow-up with your primary care doctor in the next 5-7 days. ? Please return to the emergency room if you develop any worsening symptoms including, but not limited to fever, chest pain or difficulty breathing. ? Prescriptions: No Action cholecalciferol (vitamin D3) 50 mcg (2,000 unit) capsule 50 mcg PO DAILY 90 Days Qty: 90 2RF levothyroxine [Synthroid] 75 mcg tablet 75 mcg PO QAM Qty: 90 2RF multivit with min-folic acid [Women's Multivitamin Gummies] 120 mcg tablet,chewable PO calcium polycarbophil [FiberCon] 625 mg tablet 625 mg PO DAILY 30 Days Qty: 30 2RF nystatin 100,000 unit/gram cream 1 appl topical BID Qty: 30 0RF sennosides 8.6 mg tablet 17.2 mg PO BEDTIME Qty: 60 6RF docusate sodium 100 mg capsule 100 mg PO BID PRN (Reason: constipation) 30 Days Qty: 60 6RF omeprazole 40 mg capsule,delayed release(DR/EC) 40 mg PO DAILY 90 Days Qty: 90 2RF Print Language: Albanian
[2024-01-10 17:35] VITALS: BP 126/50; PULSE 66; RESP 14; TEMP 36.8; O2SAT 100
[2024-01-10 17:39] VITALS: BP 126/50; PULSE 66; RESP 14; TEMP 36.8; O2SAT 100
== END 2024-01-10 17:40 | disposition home or self-care (01) ==
PROVIDERS: Registered Nurse Emergency; Emergency Provider Emergency Medicine
DX: R07.9 Chest pain, unspecified (principal); E78.5 Hyperlipidemia, unspecified; E03.9 Hypothyroidism, unspecified; Z79.899 Other long term (current) drug therapy; Z03.818 Encounter for observation for suspected exposure to other biological agents ruled out; Z72.89 Other problems related to lifestyle; Z56.6 Other physical and mental strain related to work
CPT/HCPCS: 0241U; 71046; 80053; 84443; 84484; 84702; 85025; 85610; 93005; 99283

== ENCOUNTER 2024-03-06 12:36 | Outpatient (AMB) | payer OTHER, SELFPAY ==
--- NOTE | 2024-03-06 12:38 | A.OFFPC_ITS ---
Vital Signs 03/06/24 12:41 Height 5 ft 3 in Weight 156 lb BMI 27.6 BP 102/66 Blood Pressure Location Lt brachial Position Sitting Respiration 12 Pulse 69 Pulse Source Pulse Oximeter Pulse Oximetry (%) 97 Oxygen Delivery Method Room Air Intake Visit Reasons: Annual PE Intake Note: annual physical Automatic Spooler Operator Required: No Allergies shellfish derived [SHELLFISH DERIVED] Allergy (Severe, Verified 03/06/24 12:53) ANAPHYLAXIS levothyroxine sodium Adverse Reaction (Intermediate, Verified 03/06/24 12:53) hair loss, dry skin Medication List - Last Reconciled 03/06/24 by Opal Matt, SOFTWARE VERIFICATION ENGINEER-BC calcium polycarbophil (FiberCon) 625 mg PO DAILY 30 days cholecalciferol (vitamin D3) 50 mcg PO DAILY 90 days docusate sodium 100 mg PO BID PRN 30 days multivit with min-folic acid 120 mcg (Women's Multivitamin Gummies) tabs PO nystatin 1 appl topical BID omeprazole 40 mg PO DAILY 90 days sennosides 17.2 mg (2 x 8.6 mg) PO BEDTIME Synthroid (levothyroxine) 75 mcg PO QAM NS Tobacco use date assessed: 01/12/23 Dental Screening Dental Screen Date: 03/06/24 Did you have a dental visit in the last 12 months?: Yes Did you have a dental problem in the last 6 months where you did not have access to dental care?: No Was dental information given to patient?: Patient has dentist HPI HPI Comments History of Present Illness Details 43-year-old female with chronic GERD, ch ronic constipation, hyperlipidemia, impaired fasting glucose, hypothyroidism, nontoxic multinodular goiter, vitamin-D deficiency, , moderate diverticulosis, colon polyp, hx of ovarian cysts, endometriosis, seasonal allergies Health Maintenance: Colon 01/25/21, moderate diverticulosis, colon polyp repeat 5 years Mammo 2020 Tdap 2015 Flu declined Specialist SAMPLE EXAMINER @ [facility] Here today as a new patient to me, to [facility] care and for CPE Record reviewed. Labs 01/10/24 reviewed normal except elevated random glucose Eye exam 1 year ago, glasses for distance, next appt 04/2024 She is having irregular periods, she was followed closely by cst for endometriosis Complains of daytime somnolence and snoring. New over the last few months. Has a known history of seasonal allergies. We will plan to be getting allergy shots but fell out of care. She will resume care. She has never had a sleep study. ROS: Constitutional: Denies fever. Skin: Denies rash. Eye: Denies eye pain. ENMT: Denies sore throat and nasal congestion. Respiratory: Denies shortness of breath and cough. Gastrointestinal: Denies nausea, vomiting or abdominal pain. Cardiovascular: Denies chest pain and syncope. Genitourinary: Denies dysuria. Musculoskeletal: Denies back pain and extremity pain. Neurologic: Denies headaches, confusion, and weakness. Psychiatric: Denies suicidal thoughts and substance abuse. Allergy/ Immunologic: Denies impaired immunity. Exam: General: Well developed, well nourished, in no acute distress. Appears stated age. Head: Normocephalic, atraumatic. Eyes: Pupils are equal, round and reactive to light and accommodation. Conjunctivae are clear. Vision grossly normal. pterygium left eye nasal aspect Ears: TMs clear AU, EACS WNL Nose: Patent, without discharge. Mouth: There are no ulcers or lesions noted. No inflammation, no post nasal drip, no plaques nor exudates. Neck: Supple, no adenopathy, + thyromegaly. Lungs: Clear to auscultation bilaterally. No rales, rhonchi or wheeze noted. Good air flow in all shabazz. Heart: Regular rate and rhythm. No murmurs, click, rubs or gallops are noted. Abdomen: Bowel sounds present in all quadrants. The abdomen is soft, nontender, with no masses or organomegaly noted. No hernias are noted. Musculoskeletal: Joints are nontender, without swelling, redness, or effusions. Range of motion is observed to be normal. Pulses: Peripheral pulses are equal and palpable bilaterally. Extremities: No clubbing, cyanosis nor edema is noted. Neurologic: Gait and station normal. Cranial Nerves 2-12 intact. Motor strength grossly symmetrical and intact. No sensory loss. Balance normal. Skin: No rashes, ulcers, or lesions noted. Turgor is good. Skin color is good. Hair and nails are without abnormalities. Psych: Normal eye contact, affect and mood appropriate, and normal interactions. Patient is alert and appropriate to context. Plan: Declined flu vaccine Recommend annual eye exams FU with Climate Change Risk Assessor to resume allergy shots Check sleep study for snoring/somnolence, fu by phone when results are back Reports mammogram will be done by Marilyn Continue care with care team Labs today for thyroid, lipids, vitamin-D She will need a refill on her Synthroid, brand name only, refilled after labs confirm euthyroid state. No need to follow up with endocrinology as ultrasound imaging is stable, biopsies negative. Last endocrinology note states no further imaging needed or endocrinology follow up required. Return to office in 6 months to follow up on hyperlipidemia, hypothyroidism, vitamin-D deficiency, repeat labs do 1 week before, return to office sooner as needed. This note is constructed using voice recognition software. While every effort has been made to ensure accuracy in chute loader, still errors may have been included Sometimes, these errors may affect the content or meaning of the given sentence . An additional 20 minutes was spent addressing the problem(s) noted at todays visit. This includes time spent before the visit reviewing the chart, time spent during the visit, and time spent after the visit on documentation [facility] Medical History (Updated 03/06/24 @ 13:28 by Opal Matt, [facility]) Daytime somnolence H. pylori infection Dyslipidemia Elevated fasting glucose Non-toxic multinodular goiter Family history of diabetes mellitus Physical exam GERD (gastroesophageal reflux disease) Hypovitaminosis D Constipation by delayed colonic transit Hypothyroidism Surgical History Hx of colonoscopy History of laparoscopy Family History Father Asthma Mother No problems noted. Maternal Aunt Uterine cancer Brother Murder Sister Fibromyalgia Sister Lung collapse Maternal Grandmother Diabetes Stroke Paternal Aunt Diabetes Hypertension Maternal Uncle Cancer Social History Housing: Apartment Alcohol intake: never Patient Tobacco Use Status: Never used Tobacco Tobacco use type: Cigarette e-Cigarette/Vaping Use: Never Used Second Hand Smoke Exposure: No service: No Current occupational status: unemployed Cognitive needs: No Hearing needs: No Vision needs: No Questionnaire PHQ-9 Over the last 2 weeks, how often have you been bothered by any of the following problems? 1. Little interest or pleasure in doing things: not at all 2. Feeling down, depressed, or hopeless: not at all 3. Trouble falling or staying asleep, or sleeping too much: not at all 4. Feeling tired or having little energy: more than half the days 5. Poor appetite or overeating: not at all 6. Feeling bad about yourself - or that you are a failure or have let yourself or your family down: not at all 7. Trouble concentrating on things, such as reading the newspaper or watching television: not at all 8. Moving or speaking so slowly that other people could have noticed. Or the opposite - being so fidgety or restless that you have been moving around a lot more than usual: not at all 9. Thoughts that you would be better off or of hurting yourself in some way: not at all Total score: 2 Depression Screening Interpretation: Negative Depression Screening Done: Yes 70724 - PHQ-9 Billing: Yes Source: Developed by Drs. Hayder Golden, Ida Warner, Geoff Lakhani and colleagues, with an educational steve from [employer]. Thrive Questionnaire Date Thrive assessed: 03/06/24 I am a: Patient What is your living situation today?: I have a steady place to live Within the past 12 months, did the food you bought not last and you didn't have the money to get more?: Never true Within the past 12 months, did you worry whether your food would run out before you got money to buy more?: I choose not to answer this question Do you have trouble paying for medicines?: No Do you have trouble getting transportation to medical appointments?: No Do you have trouble paying your heating and electricity bill?: No Do you have trouble taking care of your child, family member or friend?: No Do you have trouble with day-to-day activities such as bathing, preparing meals, shopping, managing finances, etc.?: No Are you currently unemployed and looking for a job?: No Are you interested in more education?: Yes Please select the resources that you would like help with: Education Currently or been in a relationship where the following occur: No concerns reported THRIVE Score: 0 AUDIT C Alcohol Use Questionnaire (AUDIT-C) 1. How often do you have a drink containing alcohol?: Never 2. How many drinks containing alcohol do you have on a typical day when you are drinking?: 1 or 2 3. How often do you have six or more drinks on one occasion?: Never Total Score: 0 Score Reviewed/Action Taken: Yes EDA-7 AMB Questionnaire EDA-7 Date EDA - 7 assessed: 03/06/24 Feeling nervous, anxious, or on edge: 0 = Not at all Not being able to stop or control worryin = Not at all Worrying too much about different things: 0 = Not at all Trouble relaxin = Not at all Being so restless that it is hard to sit still: 0 = Not at all Becoming easily annoyed or irritable: 0 = Not at all Feeling afraid as if something awful might happen: 0 = Not at all Total EDA-7 score (0-4 normal; 5-9 mild; 10-14 moderate; 15-21 severe): 0 Source: Developed by Drs. Hayder Golden, Ida Warner, Geoff Lakhani and colleagues, with an educational steve from [employer]. EDA-7 Assessment Billing EDA-7 Assessment Tool: EDA-7 Assessment 10380 Physical exam (Primary Care) Vital Signs: Last Vital Signs Pulse 69 03/06/24 12:41 Resp 12 03/06/24 12:41 BP 102/66 03/06/24 12:41 Pulse Ox 97 03/06/24 12:41 Oxygen Delivery Method Room Air 03/06/24 12:41 BMI result Body Mass Index 27.6 Tobacco/Smoking Status: Tobacco use Status Tobacco use date assessed 01/12/23 03/06/24 12:43 Patient Tobacco Use Status Never used Tobacco 03/06/24 12:43 Tobacco use type Cigarette 03/06/24 12:43 e-Cigarette/Vaping Use Never Used 03/06/24 12:43 PHQ-9: PHQ-9 Score PHQ-9: Total score 2 03/06/24 13:03 Depression Screening Interpretation: Negative Thrive Assessment: Date of Thrive Assessment Date Thrive assessed 03/06/24 03/06/24 12:43 Currently or been in a relationship where the following occur: No concerns reported Coding Level of Care Code Est Pt Level 3 (24495) Est Pt Prev Care 40-64y(97420) Diagnoses Encounter for general adult medical examination without abnormal findings Z00.00 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; E06.3 Hypothyroidism type: due to Wanda's thyroiditis Hypovitaminosis D E55.9 Non-toxic multinodular goiter E04.2 Elevated fasting glucose R73.01 Dyslipidemia E78.5 Influenza vaccination declined Z28.21 Snoring R06.83 Constipation by delayed colonic transit K59.01 GERD (gastroesophageal reflux disease) K21.9 Esophagitis presence: without esophagitis Irritable bowel syndrome with both constipation and diarrhea K58.2 Tubular adenoma of colon D12.6 Seasonal allergies J30.2 Pterygium H11.009 Laterality: left Diverticulosis K57.90 Establishing care with new doctor, encounter for Z76.89 Additional Codes EDA-7 Assessment Billing - EDA-7 Assessment Tool: EDA-7 Assessment 31730 ([id number]) PHQ-9 - 05812 - PHQ-9 Billing: Yes ([id number]) Assessment & Plan Assessment & Plan (1) Encounter for general adult medical examination without abnormal findings: Code(s): Z00.00 - Encounter for general adult medical examination without abnormal findings (2) Hypothyroidism: Code(s): E03.9 - Hypothyroidism, unspecified Category: Medical Qualifiers: Hypothyroidism type: due to Wanda's thyroiditis Qualified Code(s): E03.8 - Other specified hypothyroidism; E06.3 - Autoimmune thyroiditis (3) Hypovitaminosis D: Code(s): E55.9 - Vitamin D deficiency, unspecified Category: Medical (4) Non-toxic multinodular goiter: Code(s): E04.2 - Nontoxic multinodular goiter Category: Medical (5) Elevated fasting glucose: Code(s): R73.01 - Impaired fasting glucose Category: Medical (6) Dyslipidemia: Code(s): E78.5 - Hyperlipidemia, unspecified Category: Medical (7) Influenza vaccination declined: Code(s): Z28.21 - Immunization not carried out because of patient refusal Category: Medical (8) Snoring: Code(s): R06.83 - Snoring Category: Medical (9) Constipation by delayed colonic transit: Code(s): K59.01 - Slow transit constipation Category: Medical (10) GERD (gastroesophageal reflux disease): Code(s): K21.9 - Gastro-esophageal reflux disease without esophagitis Category: Medical Qualifiers: Esophagitis presence: without esophagitis (11) Irritable bowel syndrome with both constipation and diarrhea: Code(s): K58.2 - Mixed irritable bowel syndrome Category: Medical (12) Tubular adenoma of colon: Code(s): D12.6 - Benign neoplasm of colon, unspecified Category: Medical (13) Seasonal allergies: Code(s): J30.2 - Other seasonal allergic rhinitis Category: Medical (14) Pterygium: Code(s): H11.009 - Unspecified pterygium of unspecified eye Category: Medical Qualifiers: Laterality: left (15) Diverticulosis: Code(s): K57.90 - Diverticulosis of intestine, part unspecified, without perforation or abscess without bleeding Category: Medical (16) Establishing care with new doctor, encounter for: Code(s): Z76.89 - Persons encountering health services in other specified circumstances Plan . Orders: Orders Hemoglobin A1c Today E03.8 - Other specified hypothyroidism, E06.3 - Autoimmune thyroiditis, E55.9 - Vitamin D deficiency, unspecified, E78.5 - Hyperlipidemia, unspecified, R73.01 - Impaired fasting glucose TSH reflex Free T4 Today E03.8 - Other specified hypothyroidism, E06.3 - Autoimmune thyroiditis, E55.9 - Vitamin D deficiency, unspecified, E78.5 - Hyperlipidemia, unspecified, R73.01 - Impaired fasting glucose Microalbumin, Random (w Creat) Today E03.8 - Other specified hypothyroidism, E06.3 - Autoimmune thyroiditis, E55.9 - Vitamin D deficiency, unspecified, E78.5 - Hyperlipidemia, unspecified, R73.01 - Impaired fasting glucose Lipid Panel 6 Months E03.8 - Other specified hypothyroidism, E04.2 - Nontoxic multinodular goiter, E06.3 - Autoimmune thyroiditis, E55.9 - Vitamin D deficiency, unspecified, E78.5 - Hyperlipidemia, unspecified, R73.01 - Impaired fasting glucose Lipid Panel Today E03.8 - Other specified hypothyroidism, E06.3 - Autoimmune thyroiditis, E55.9 - Vitamin D deficiency, unspecified, E78.5 - Hyperlipidemia, unspecified, R73.01 - Impaired fasting glucose Vitamin D 25-OH Total Today E03.8 - Other specified hypothyroidism, E06.3 - Autoimmune thyroiditis, E55.9 - Vitamin D deficiency, unspecified, E78.5 - Hyperlipidemia, unspecified, R73.01 - Impaired fasting glucose Comprehensive Met. Panel Today E03.8 - Other specified hypothyroidism, E04.2 - Nontoxic multinodular goiter, E06.3 - Autoimmune thyroiditis, E55.9 - Vitamin D deficiency, unspecified, E78.5 - Hyperlipidemia, unspecified, R73.01 - Impaired fasting glucose TSH reflex Free T4 6 Months E03.8 - Other specified hypothyroidism, E04.2 - Nontoxic multinodular goiter, E06.3 - Autoimmune thyroiditis, E55.9 - Vitamin D deficiency, unspecified, E78.5 - Hyperlipidemia, unspecified, R73.01 - Impaired fasting glucose Vitamin D 25-OH Total 6 Months E03.8 - Other specified hypothyroidism, E04.2 - Nontoxic multinodular goiter, E06.3 - Autoimmune thyroiditis, E55.9 - Vitamin D deficiency, unspecified, E78.5 - Hyperlipidemia, unspecified, R73.01 - Impaired fasting glucose RT home sleep study Today R06.83 - Snoring, R40.0 - Somnolence Patient Instructions: Walk-In Care (Urgent Care): We Make it Easy Walk-in for urgent medical issues such as: ? Seasonal Allergies ? Insect Bites ? Cough ? Diarrhea ? Acute Asthma Attacks ? Back, Knee or Joint Pain ? Ear Infection ? Fever without a Rash ? Headaches ? Nausea ? [place], Rash or Skin Irritation ? Sore Throat ? Sports Physicals ? Vomiting Most insurances are accepted. Patients do not need to be part of the [facility] to seek care at the walk-in clinic. Locations [facility] [address], [place] [address] ? [phone] [facility] in [place] provides services to ages 18 and over. Open Monday-Monday: 8 a.m. to 5 p.m. and Monday: 9 a.m. to 3 p.m.* *Hours may vary due to staffing availability. To confirm Walk-In Care hours in [place], please call [phone]. [address] [place] [address], [place] [address] ? [phone] [facility] [place] provides services to ages 12 and over. Open Monday-Monday: 8 a.m. to 5 p.m. Hours may vary due to staffing availability. To confirm Walk-In Care hours in [place], please call [phone]. LABORATORY SERVICES: [facility] Lab ? Primary Location [address] [place] [address] Monday through Monday 6:00 AM ? 5:00 PM Monday 7:00 AM ? 11:00 AM* [phone] The [facility] Lab is centrally located near the front entrance of the [facility] for easy outpatient access. Convenient parking is provided for outpatients. *Hours may vary due to staffing availability. To confirm Laboratory hours for any location, please call [phone]. Offsite Location For your convenience, we offer offsite laboratory draw stations at the following locations: [address] [place] [address] ? [facility] [address], [address] Monday through Monday 7:30 AM ? 1:00 PM* [phone] *Hours may vary due to staffing availability. To confirm Laboratory hours for any location, please call [phone]. [place] ? [address] Monday through Monday 6:00 AM ? 3:30 PM* Monday 6:30 AM ? 3 PM* [phone] *Hours may vary due to staffing availability. To confirm Laboratory hours for any location, please call [phone] [place] [address] Monday through Monday 7:30 AM ? 4:00 PM* [phone] *Hours may vary due to staffing availability. To confirm Laboratory hours for any location, please call [phone] [place] [address] Monday through 9:00 AM ? 4:00 PM* *Hours may vary due to staffing availability. To confirm Laboratory hours for any location, please call [phone]. Appointments are not necessary. Walk-ins are welcome. Like all the departments throughout the [facility], our Lab undergoes frequent reviews to ensure the quality and accuracy of test results, and our staff takes special pride in its status as a nationally accredited facility. Patient Portal: ONE PATIENT. ONE RECORD. BETTER CARE. [facility] has a fully integrated, cutting- edge mobile electronic health information system that has revolutionized the way we care for our patients and manage our organization. This system improves communication and coordination enabling us to provide safe, higher-quality care, and an overall positive experience for staff and patients. Our first priority, as always, is to deliver the highest quality care possible. The system is running in the background supporting that priority. This portal is for all [facility] services and practices. If you are experiencing any technical difficulties with enrolling or logging into the Patient Portal please complete the [facility] Patient Portal Technical Support Form. [facility] now offers a new secure on-line interactive tool for patients to review their health information ? Patient Portal. This interactive web portal will enable patients and their families to take an active role in their care by providing easy, secure access to their health information via the internet. The Patient Portal provides patients with instant access to their health information, including laboratory results, medications, allergies, demographic information, visit history, and more. In addition to managing their own care, parents and health care proxies with authorized consent will appreciate the ability to access the records of those individuals for whom they provide care. Please note: if you wish to gain access (Proxy) to another patient?s portal, you will be required to come to the Medical Records Department in person at [facility]. Both the patient giving proxy access and the proxy will need to provide photo identification and complete the appropriate authorization. The Patient Portal also allows track their appointments online. The [facility] Patient Portal also saves patients time by allowing them to submit updates to their demographic and contact information prior to their visits. Portal email notifications will also alert patients to any new activity on their portal, such as test results and new appointments. In order to initially enroll in the [facility] Patient Portal, you will need to enter some required information including the following: ? your [facility] Medical Record number ? your personal home email address ? name ? date of Please note: In order to enroll in the [facility] Patient Portal, we need to have your email address on file in your electronic medical record. The email address needs to be specific for one person (yourself) in order for your Portal enrollment to be successful. You can update your email address in person with our Registration staff when you are registering for a hospital visit. Otherwise, you will need to come to the Health Information Management (Medical Records) Department at [facility]. We are open from Monday ? Monday from 7:30 a.m. ? 4:30 p.m. You will be required to present a photo id. Once you have successfully enrolled in the Patient Portal, you will receive a one-time user id and password for the Portal, sent to your email address. This will allow you to log into the Patient Portal within 99 hrs and reset your own logon id and password, and define personal security questions. Once your permanent login and password have been set, you can log into the [facility] Patient Portal at any time via the blue button above or from the Portal Logon button on any page of the [facility] website. [facility] and [facility] encourage all of our patients to enroll in Patient Portal as it presents a valuable opportunity for patients and their families to actively participate in their care and stay healthy Welcome to [facility]. We look forward to working with you. Health screenings for women You should visit your health care provider from time to time, even if you are healthy. The purpose of these visits is to: Screen for medical issues Assess your risk for future medical problems Encourage a healthy lifestyle Update vaccinations and other preventive care services Help you get to know your provider in case of an illness Information Even if you feel fine, you should still see your provider for regular checkups. These visits can help you avoid problems in the future. For example, the only way to find out if you have high blood pressure is to have it checked regularly. High blood sugar and high cholesterol levels also may not have any symptoms in the early stages. A simple blood test can check for these conditions. There are specific times when you should see your provider or receive specific health screenings. The [place] Preventive Services Task Force publishes a list of recommended screenings. Below are screening guidelines for women ages 18 to 39. BLOOD PRESSURE SCREENING Your blood pressure should be checked at least once every 3 to 5 years if: Your blood pressure is in the normal range (top number less than 120 mm Hg and bottom number less than 80 mm Hg) You don't have risk factors for high blood pressure Ask your provider if you need your blood pressure checked more often if: The top number is 120 to 129 mm Hg or the bottom number is 70 to 79 mm Hg You have diabetes, heart disease, kidney problems, are overweight, or have certain other health conditions You have a first-degree relative with high blood pressure You are Black You had high blood pressure during a If the top number is 130 mm Hg or greater or the bottom number is 80 mm Hg or greater, this is considered stage 1 hypertension. Schedule an appointment with your provider to learn how you can reduce your blood pressure. Watch for blood pressure screenings in your area. Ask your provider if you can stop in to have your blood pressure checked. BREAST CANCER SCREENING Experts do not agree about the benefits of breast self-exams in finding breast cancer or saving lives. Talk to your provider about what is best for you. A screening mammogram is not recommended for most women under age 40. Your provider may discuss and recommend mammograms, MRI scans, or ultrasounds if you have an increased risk for breast cancer, such as: A mother or sister who had breast cancer at a young age (most often starting screening earlier than the age the close relative was diagnosed) You carry a high-risk genetic marker CERVICAL CANCER SCREENING Cervical cancer screening should start at age 21 years unless your provider advises otherwise. After the first test: Women ages 21 through 29 should have a Pap test every 3 years. Exoprts do not agree on whether HPV testing is recommended for this age group. Women ages 30 through 65 should be screened with either a Pap test every 3 years or the HPV test every 5 years or both tests every 5 years (called cotesting ). Women who have been treated for precancer (cervical dysplasia) should continue to have Pap tests for 20 years after treatment or until age 65, whichever is longer. If you have had your uterus and cervix removed (total hysterectomy), and you have not been diagnosed with cervical cancer or precancer (high grade cervical neoplasia), you do not need cervical cancer screening. CHOLESTEROL SCREENING Cholesterol screening should begin at: Age 45 for women with no known risk factors for coronary heart disease Age 20 for women with known risk factors for coronary heart disease Repeat cholesterol screening should take place: Every 5 years for women with normal cholesterol levels More often if changes occur in lifestyle (including weight gain and diet) More often if you have diabetes, heart disease, kidney problems, or certain other conditions DIABETES SCREENING You should be screened for diabetes starting at age 35 and then repeated every 3 years if you have no risk factors for diabetes. Screening may need to start earlier and be repeated more often if you have other risk factors for diabetes, such as: You have a first degree relative with diabetes. You are overweight or have obesity. You have high blood pressure, prediabetes, or a history of heart disease. Screening for diabetes should be done if you are planning to become and you are overweight and have other risk factors such as high blood pressure. DENTAL EXAM Go to the dentist once or twice every year for an exam and cleaning. Your dentist will evaluate if you need more frequent visits. EYE EXAM Have an eye exam every 5 to 10 years before age 40. If you have vision problems, have an eye exam every 2 years or more often if recommended by your provider. You should have an eye exam that includes an examination of your retina (back of your eye) at least every year if you have diabetes. IMMUNIZATIONS Commonly needed vaccines include: Flu shot: get one every year. COVID-19 vaccine: ask your provider what is best for you. Tetanus-diphtheria and acellular pertussis (Tdap) vaccine: have one at or after age 19 as one of your tetanus-diphtheria vaccines if you did not receive it as an adolescent. Tetanus-diphtheria: have a booster (or Tdap) every 10 years. Varicella vaccine: receive 2 doses if you never had chickenpox or the varicella vaccine. Hepatitis B vaccine: receive 2, 3, or 4 doses, depending on your exact circumstances. Measles, mumps, and rubella (MMR) vaccine: receive 1 to 2 doses if you are not already immune to MMR. Your provider can tell you if you are immune. Ask your provider about the human papillomavirus (HPV) vaccine if: You have not received the HPV vaccine in the past You have not completed the full vaccine series (you should catch up on this shot) Ask your provider if you should receive other immunizations if you have certain health problems that increase your risk for some diseases such as pneumonia. INFECTIOUS DISEASE SCREENING Women who are sexually active should be screened for chlamydia and gonorrhea up until age 25. Women 25 years and older should be screened for chlamydia and gonorrhea if at high risk. Screening for hepatitis C: All adults ages 18 to 79 should get a one-time test for hepatitis C. people should be screened at every . Screening for human immunodeficiency virus (HIV): All people ages 15 to 65 should get a one-time test for HIV. Depending on your lifestyle and medical history, you may also need to be screened for infections such as syphilis and HIV, as well as other infections. PHYSICAL EXAM All adults should visit their provider from time to time, even if they are healthy. The purpose of these visits is to: Screen for disease Assess your risk of future medical problems Encourage a healthy lifestyle Update your vaccinations and other preventive care services Maintain a relationship with a provider in case of an illness Your height, weight, and BMI should be checked at every exam. During your exam, your provider may ask you about: Depression and anxiety Diet and exercise Alcohol and tobacco use Safety issues, such as using seat belts, smoke detectors, and intimate partner violence Your medicines and risk for interactions SKIN SELF-EXAM Your provider may check your skin for signs of skin cancer, especially if you're at high risk, such as if you: Have had skin cancer before Have close relatives with skin cancer Have a weakened immune system OTHER SCREENING Talk with your provider about colon cancer screening if you have a strong family history of colon cancer or polyps, or if you have had inflammatory bowel disease or polyps yourself. Routine bone density screening of women under 40 is not recommended.
[2024-03-06 12:41] VITALS: BP 102/66; PULSE 69; RESP 12; O2SAT 97; BMI 27.6
== END 2024-03-06 13:29 | disposition home or self-care (01) ==
PROVIDERS: PCP Family Medicine; Visit Provider Nurse Practitioner Family
DX: Z00.00 Encounter for general adult medical examination without abnormal findings (principal); E03.8 Other specified hypothyroidism; E06.3 Autoimmune thyroiditis; E55.9 Vitamin D deficiency, unspecified; E04.2 Nontoxic multinodular goiter; R73.01 Impaired fasting glucose; E78.5 Hyperlipidemia, unspecified; Z28.21 Immunization not carried out because of patient refusal; R06.83 Snoring; K59.01 Slow transit constipation; K21.9 Gastro-esophageal reflux disease without esophagitis

== ENCOUNTER 2024-03-06 13:20 | Outpatient (REF) | payer OTHER, SELFPAY ==
[2024-03-06 14:40] LABS: Estimated Average Glucose 128 mg/dL; Hemoglobin A1C 144.6736 umol/L; Hemoglobin A1c % 6.1 % (<6.0); Total Hemoglobin (HGBA1C) 3395.0782 umol/L
[2024-03-06 15:00] LABS: Creatinine Urine 130.87 mg/dL; Microalbum/Creatinine Ratio Ur 7.6 ug/mg cr (<30)
[2024-03-06 15:00] LABS: Alanine Aminotransferase 34 U/L (0-31); Albumin Level 4.5 g/dL (3.5-5.0); Alkaline Phosphatase 69 U/L (39-117); Anion Gap 15 (12-20); Aspartate Amino Transferase 31 U/L (5-31); Bilirubin Total 0.4 mg/dL (0.0-1.0); Blood Urea Nitrogen 17 mg/dL (9-16); Calcium 9.3 mg/dL (8.4-10.2); Carbon Dioxide 26 mmol/L (22-29); Chloride 104 mmol/L (96-108); Cholesterol 237 mg/dL (<200); Estimated Glomerular Filt Rate > 60; Glucose Random 89 mg/dL (60-115); HDL Cholesterol 56 mg/dL (>40); LDL Cholesterol Calculated 151 mg/dL (<100); Potassium 3.8 mmol/L (3.3-5.1); Sodium 141 mmol/L (135-145); Triglycerides 151 mg/dL (<150)
[2024-03-06 15:09] LABS: TSH reflex Free T4 2.65 uIU/mL (0.32-4.0); Vitamin D 25-OH Total 20.4 ng/mL (>30)
== END 2024-03-06 13:21 | disposition home or self-care (01) ==
LOC: HO.WFDLDS 13:20
PROVIDERS: Visit Provider Nurse Practitioner Family
DX: Z00.00 Encounter for general adult medical examination without abnormal findings (principal); E06.3 Autoimmune thyroiditis; E03.8 Other specified hypothyroidism; E55.9 Vitamin D deficiency, unspecified; E04.2 Nontoxic multinodular goiter; R73.01 Impaired fasting glucose; E78.5 Hyperlipidemia, unspecified; R06.83 Snoring; K59.01 Slow transit constipation; K21.9 Gastro-esophageal reflux disease without esophagitis; K58.2 Mixed irritable bowel syndrome; J30.2 Other seasonal allergic rhinitis; H11.009 Unspecified pterygium of unspecified eye; K57.90 Diverticulosis of intestine, part unspecified, without perforation or abscess without bleeding; Z76.89 Persons encountering health services in other specified circumstances
CPT/HCPCS: 36415; 80053; 80061; 82043; 82306; 82570; 83036; 84443; 96127

== ENCOUNTER 2024-05-01 13:18 | Outpatient (AMB) | payer OTHER, SELFPAY ==
[2024-05-01 13:24] VITALS: BMI 28.0
--- NOTE | 2024-05-01 13:24 | A.OFFVIS_ITS ---
VS Expanded 05/01/24 13:24 05/01/24 13:33 Height 5 ft 3 in 5 ft 3 in Weight 157 lb 13.616 oz 158 lb BMI 28.0 28.0 Intake Visit Reasons: Prediabetes, Hyperlipidemia, unspecified Allergies shellfish derived [SHELLFISH DERIVED] Allergy (Severe, Verified 03/06/24 12:53) ANAPHYLAXIS levothyroxine sodium Adverse Reaction (Intermediate, Verified 03/06/24 12:53) hair loss, dry skin Nutrition Presentation Details: Pt presents for MNT for Pre DM and hyperlipidemia Pt reports typical meal intake food frequency fruits 2-3/d fish: 0-1/m yogurt/dairy: 1 /d vegetables: 0-1/d fried foods: 2/wk Beverages: water/low sugar beverages etoh/smokng: ---- physical activity: daily life activities BS Monitoring Most Recent Diabetes Results: Microalb/Creat Ratio 7.6 ug/mg cr (<30) 03/06/24 Cholesterol 237 mg/dL (<200) H 03/06/24 HDL Cholesterol 56 mg/dL (>40) 03/06/24 Triglycerides 151 mg/dL (<150) H 03/06/24 Creatinine 0.73 mg/dL (0.5-1.4) 03/06/24 Blood Urea Nitrogen 17 mg/dL (9-16) H 03/06/24 Sodium 141 mmol/L (135-145) 03/06/24 Potassium 3.8 mmol/L (3.3-5.1) 03/06/24 Chloride 104 mmol/L (96-108) 03/06/24 Carbon Dioxide 26 mmol/L (22-29) 03/06/24 Calcium 9.3 mg/dL (8.4-10.2) 03/06/24 AST 31 U/L (5-31) 03/06/24 ALT 34 U/L (0-31) H 03/06/24 Total Protein 8.0 g/dL (6.5-8.0) 03/06/24 Albumin 4.5 g/dL (3.5-5.0) 03/06/24 HSM-Lctqzui-Dq.Jeor Equation Height: 5 ft 3 in Weight: 158 lb Resting Metabolic Rate: 1333.68 Calculated Activity Level: Sedentary Calories Needed to Maintain Weight: 1600.42 Diagnosis Nutrition problem #1: excessive energy intake As related to (etiology) #1: diagnosis As evidenced by (sign/symptom) #1: knowledge deficit of diet Monitoring/Goals Nutrition problem monitoring: level of knowledge/skill and total CHO intake Learning/Education Readiness to learn: good Stages of change: action Educational materials provided: Yes (meal planning) [facility] Medical History (Updated 03/11/24 @ 11:53 by Opal Matt [facility]) Daytime somnolence H. pylori infection Dyslipidemia Elevated fasting glucose Non-toxic multinodular goiter Family history of diabetes mellitus Physical exam GERD (gastroesophageal reflux disease) Hypovitaminosis D Constipation by delayed colonic transit Hypothyroidism Surgical History Hx of colonoscopy History of laparoscopy Family History Father Asthma Mother No problems noted. Maternal Aunt Uterine cancer Brother Murder Sister Fibromyalgia Sister Lung collapse Maternal Grandmother Diabetes Stroke Paternal Aunt Diabetes Hypertension Maternal Uncle Cancer Social History Housing: Apartment Alcohol intake: never Patient Tobacco Use Status: Never used Tobacco Tobacco use type: Cigarette e-Cigarette/Vaping Use: Never Used Second Hand Smoke Exposure: No service: No Current occupational status: unemployed Cognitive needs: No Hearing needs: No Vision needs: No Assessment & Plan Assessment & Plan (1) Prediabetes: Code(s): R73.03 - Prediabetes Category: Medical Plan: Wt: 72 Kg ( 04/2024 ) Est kcal needs as per MSJ: 1600 (40% carb, 30% protein/fat) Est fluid needs as per 25-30 ml/d: 2200 Est prot per day as per 1 g/kg bw: 70 Recommend fiber intake : 8-10 g per day and gradually increase to 25-28 g per day for women and 35-38 g for men or as tolerated Recommend sodium intake per day : less than 2300 mg Educated patient on: ( R = reviewed V = verbalizes understanding N/R = needs review N/A = not applicable * Food sources of carbohydrate, adequate serving sizes and its role in various health conditions: R * Differences between complex carbohydrates a simple carbohydrates, role of fiber in diet: R * Lean protein sources of foods: R * Differences between types of fats and role in diet (mono on saturated fat fatty acids, saturated fatty acids, trans fats): R V N/R * Food sources of sodium in salt and healthy modifications for heart health in kidney health: R V R/V * Vitamins and minerals: R V N/R * Healthy plate method concept: R V N/R * Physical activity: Benefits a precaution: R V N/R * Hypoglycemia protocol (rule of 15): R V N/R * Dietary prevention of Hyperglycemia: R Patient Instructions: Reduce on total carb intake to 45-60 g or less per meal and 0-20g as snack Coding Level of Care Code Nutr Indiv Intake (55886) Diagnoses Prediabetes R73.03 Time Spent (min) 30
[2024-05-01 13:33] VITALS: BMI 28.0
== END 2024-05-01 14:03 | disposition home or self-care (01) ==
PROVIDERS: PCP Family Medicine; Visit Provider Dietitian, Registered
DX: R73.03 Prediabetes (principal)

== ENCOUNTER → 2024-05-01 14:06 | Outpatient (REF) | payer OTHER, SELFPAY | LOC: HO.SL 14:06 | PROVIDERS: PCP Family Medicine; Visit Provider Nurse Practitioner Family | DX: G47.30 Sleep apnea, unspecified (principal); R06.83 Snoring; R40.0 Somnolence; R73.03 Prediabetes; Z71.3 Dietary counseling and surveillance | CPT/HCPCS: 95806; 97802 ==

== ENCOUNTER → 2024-05-01 14:23 | Outpatient (BNV) | payer OTHER, SELFPAY | PROVIDERS: PCP Family Medicine; Visit Provider Internal Medicine | DX: G47.33 Obstructive sleep apnea (adult) (pediatric) (principal) | CPT/HCPCS: 95806 ==

== ENCOUNTER 2024-05-17 13:39 | Outpatient (AMB) | payer OTHER, SELFPAY ==
--- NOTE | 2024-05-17 14:08 | MHC.PC.OV ---
Intake Visit Reasons: SLEEP STUDY Allergies shellfish derived [SHELLFISH DERIVED] Allergy (Severe, Verified 05/17/24 14:08) ANAPHYLAXIS levothyroxine sodium Adverse Reaction (Intermediate, Verified 05/17/24 14:08) hair loss, dry skin Medication List - Last Reconciled 05/17/24 by WILLIE MoraP- calcium polycarbophil (FiberCon) 625 mg PO DAILY 30 days cholecalciferol (vitamin D3) 125 mcg PO DAILY docusate sodium 100 mg PO BID PRN 30 days multivit with min-folic acid 120 mcg (Women's Multivitamin Gummies) tabs PO nystatin 1 appl topical BID omeprazole 40 mg PO DAILY 90 days sennosides 17.2 mg (2 x 8.6 mg) PO BEDTIME Synthroid (levothyroxine) 75 mcg PO QAM NS Tobacco use date assessed: 05/17/24 Dental Screening Dental Screen Date: 05/17/24 Did you have a dental visit in the last 12 months?: Yes Did you have a dental problem in the last 6 months where you did not have access to dental care?: No Was dental information given to patient?: Patient has dentist HPI HPI Comments History of Present Illness Details Telehealth via [employer] The patient is a 44-year-old female with excessive daytime fatigue. This symptom prompted evaluation for obstructive sleep apnea, culminating in a sleep study that confirmed the diagnosis. The study revealed episodes of apnea characterized by interruptions in breathing during the night and significantly reduced oxygen saturation levels. These disruptions in normal sleep patterns are contributing to the patient's profound and persistent tiredness throughout the day. She is eager to address her symptoms and is concerned about maintaining compliance with a prescribed treatment regimen. She has a 1st patient appointment with Allergy and immunology in the summer. Discussion Notes I conducted a discussion with the patient regarding her diagnosis of obstructive sleep apnea. I explained the implications of this condition, notably the recurrent cessation of breathing during sleep and the resultant reduction in oxygenation, contributing to her excessive fatigue. I presented the use of Continuous Positive Airway Pressure (CPAP) therapy as the mainstay of treatment. The importance of adherence to CPAP usage was underscored, including compliance requirements set by insurance providers, which necessitate usage for at least four hours per night on 70% of nights each month. I assured her that [facility] will provide equipment and training. Additionally, we conversed about follow-up plans, including an appointment within 60 days of initiating CPAP therapy to evaluate compliance and address any concerns. An jorge on the patient's phone was recommended for tracking usage data. Patient Instructions - Use a CPAP machine for at least four hours nightly on 70% of nights. - Follow instructions provided by [facility] for CPAP setup and usage. - Monitor CPAP usage via the downloadable jorge. - Contact [facility] if there are delays in receiving the CPAP machine. - Follow up with the clinic within 60 days after starting CPAP therapy. - Complete lab work one week before the follow-up appointment in August. Plan Regarding the management of obstructive sleep apnea, a CPAP machine has been prescribed as the primary treatment modality. The patient will be connected with [facility] for the setup, education, and monitoring of this equipment. Compliance with treatment is crucial and will be closely monitored through a mobile application and by [facility]. A follow-up appointment is scheduled to ensure compliance and address any adaptation issues with CPAP use. The patient has also been advised to continue investigating any potential allergy components that may exacerbate her condition, as improving her overall health in conjunction with mitigating sleep apnea could enhance her quality of life and symptomatology. I will maintain oversight of her progress and address any further complications or lack of improvement at the next review Patient was informed and verbally consented to the use of an ambient scribe for clinic note documentation during this visit. [facility] Medical History (Updated 05/17/24 @ 14:11 by Opal Matt, [facility]) Constipation by delayed colonic transit Daytime somnolence Dyslipidemia Elevated fasting glucose Family history of diabetes mellitus GERD (gastroesophageal reflux disease) H. pylori infection Hypothyroidism Hypovitaminosis D Non-toxic multinodular goiter Physical exam Surgical History History of laparoscopy Hx of colonoscopy Family History Father Asthma Mother No problems noted. Maternal Aunt Uterine cancer Brother Murder Sister Fibromyalgia Sister Lung collapse Maternal Grandmother Diabetes Stroke Paternal Aunt Diabetes Hypertension Maternal Uncle Cancer Social History Housing: Apartment Alcohol intake: never Patient Tobacco Use Status: Never used Tobacco Tobacco use type: Cigarette e-Cigarette/Vaping Use: Never Used Second Hand Smoke Exposure: No service: No Current occupational status: unemployed Cognitive needs: No Hearing needs: No Vision needs: No Questionnaire PHQ-9 Over the last 2 weeks, how often have you been bothered by any of the following problems? 1. Little interest or pleasure in doing things: not at all 2. Feeling down, depressed, or hopeless: not at all 3. Trouble falling or staying asleep, or sleeping too much: not at all 4. Feeling tired or having little energy: not at all 5. Poor appetite or overeating: not at all 6. Feeling bad about yourself - or that you are a failure or have let yourself or your family down: not at all 7. Trouble concentrating on things, such as reading the newspaper or watching television: not at all 8. Moving or speaking so slowly that other people could have noticed. Or the opposite - being so fidgety or restless that you have been moving around a lot more than usual: not at all 9. Thoughts that you would be better off or of hurting yourself in some way: not at all Total score: 0 Depression Screening Interpretation: Negative Depression Screening Done: Yes 16974 - PHQ-9 Billing: Yes Source: Developed by Drs. Hayder Golden, Ida Warner, Geoff Lakhani and colleagues, with an educational steve from [employer]. Thrive Questionnaire Date Thrive assessed: 05/17/24 I am a: Patient What is your living situation today?: I have a steady place to live Within the past 12 months, did the food you bought not last and you didn't have the money to get more?: Never true Within the past 12 months, did you worry whether your food would run out before you got money to buy more?: Never true Do you have trouble paying for medicines?: No Do you have trouble getting transportation to medical appointments?: No Do you have trouble paying your heating and electricity bill?: No Do you have trouble taking care of your child, family member or friend?: No Do you have trouble with day-to-day activities such as bathing, preparing meals, shopping, managing finances, etc.?: No Are you currently unemployed and looking for a job?: No Are you interested in more education?: No Please select the resources that you would like help with: None Currently or been in a relationship where the following occur: No concerns reported THRIVE Score: 0 AUDIT C Alcohol Use Questionnaire (AUDIT-C) 1. How often do you have a drink containing alcohol?: Never 2. How many drinks containing alcohol do you have on a typical day when you are drinking?: 1 or 2 3. How often do you have six or more drinks on one occasion?: Never Total Score: 0 Score Reviewed/Action Taken: Yes EDA-7 AMB Questionnaire EDA-7 Date EDA - 7 assessed: 05/17/24 Feeling nervous, anxious, or on edge: 0 = Not at all Not being able to stop or control worryin = Not at all Worrying too much about different things: 0 = Not at all Trouble relaxin = Not at all Being so restless that it is hard to sit still: 0 = Not at all Becoming easily annoyed or irritable: 0 = Not at all Feeling afraid as if something awful might happen: 0 = Not at all Total EDA-7 score (0-4 normal; 5-9 mild; 10-14 moderate; 15-21 severe): 0 Source: Developed by Drs. Hayder Golden, Ida Warner, Geoff Lakhani and colleagues, with an educational steve from [employer]. EDA-7 Assessment Billing EDA-7 Assessment Tool: EDA-7 Assessment 82717 Physical exam (Primary Care) Tobacco/Smoking Status: Tobacco use Status Tobacco use date assessed 05/17/24 05/17/24 14:12 Patient Tobacco Use Status Never used Tobacco 05/17/24 14:08 Tobacco use type Cigarette 05/17/24 14:08 e-Cigarette/Vaping Use Never Used 05/17/24 14:08 PHQ-9: PHQ-9 Score PHQ-9: Total score 0 05/17/24 14:12 Depression Screening Interpretation: Negative Thrive Assessment: Date of Thrive Assessment Date Thrive assessed 05/17/24 05/17/24 14:12 Currently or been in a relationship where the following occur: No concerns reported Telehealth Telehealth Telehealth Platform: [facility] Location of provider rendering services: practice address Location of patient: address on file Patient Identification confirmed using: Name, : Yes Telehealth method: voice only Patient verbally consented to treatment: Yes Patient verbally consented to billing insurance company: Yes Patient informed of any privacy concerns related to visit: Yes Minutes spent on Phone/Video with Pt.: 10 Coding Level of Care Code Tele Est Pt Level 3 (61184) Complex EM visit Add On G2211 Diagnoses INGA on CPAP G47.33 Additional Codes EDA-7 Assessment Billing - EDA-7 Assessment Tool: EDA-7 Assessment 89182 ([id number]) PHQ-9 - 62904 - PHQ-9 Billing: Yes ([id number]) Time Spent (min) 18 Assessment & Plan Assessment & Plan (1) INGA on CPAP: Code(s): G47.33 - Obstructive sleep apnea (adult) (pediatric) Category: Medical Plan .
== END 2024-05-17 17:05 | disposition home or self-care (01) ==
LOC: HO.HMCFM 13:39
PROVIDERS: PCP Nurse Practitioner Family; Visit Provider Nurse Practitioner Family
DX: G47.33 Obstructive sleep apnea (adult) (pediatric) (principal)

== ENCOUNTER → 2024-05-17 13:39 | Outpatient (BNVA) | payer OTHER, SELFPAY | PROVIDERS: PCP Nurse Practitioner Family; Visit Provider Nurse Practitioner Family | DX: G47.33 Obstructive sleep apnea (adult) (pediatric) (principal); Z99.89 Dependence on other enabling machines and devices | CPT/HCPCS: 96127 ==

== ENCOUNTER 2024-09-19 06:18 | Outpatient (REF) | payer OTHER, SELFPAY ==
--- OUTSIDE RECORDS SUMMARY | 2024-09-19 06:22 | XMS_ITS | Continuity of Care Document ---
Author Organization [facility] Address [address] [address] Insurance Providers Payer Plan Claims Address Claims Phone Policy Number Group Number Relation Employer Guarantor Name Guarantor Guarantor Address Guarantor Phone Brenda day BAC[employer] Commu n Allia nce [id number] Problems Condition ICD9 code ICD10 code SNOMED code Start Date End Date S tatus Encounter for screening for other metabolic disorders Z13.228 Results No Results Allergies, adverse reactions, alerts No known allergies and adverse reactions Medications No administered medications reported Vital Signs No vital signs reported Social History No smoking Hx information available
[2024-09-19 07:57] LABS: Cholesterol 210 mg/dL (<200); HDL Cholesterol 50 mg/dL (>40); LDL Cholesterol Calculated 135 mg/dL (<100); Triglycerides 126 mg/dL (<150)
[2024-09-19 08:13] LABS: TSH reflex Free T4 0.37 uIU/mL (0.32-4.0); Vitamin D 25-OH Total 32.2 ng/mL (>30)
== END 2024-09-19 06:19 | disposition home or self-care (01) ==
LOC: HO.LAB 06:18
PROVIDERS: PCP Nurse Practitioner Family; Visit Provider Nurse Practitioner Family
DX: E78.5 Hyperlipidemia, unspecified (principal); R73.01 Impaired fasting glucose; E03.8 Other specified hypothyroidism; E06.3 Autoimmune thyroiditis; E55.9 Vitamin D deficiency, unspecified; E04.2 Nontoxic multinodular goiter
CPT/HCPCS: 36415; 80061; 82306; 84443

== ENCOUNTER 2024-09-20 10:50 | Outpatient (AMB) | payer OTHER, SELFPAY ==
--- NOTE | 2024-09-20 10:54 | MHC.PC.OV ---
Vital Signs 09/20/24 10:57 Height 5 ft 3 in Weight 154 lb BMI 27.3 BP 118/68 Blood Pressure Location Lt brachial Position Sitting Respiration 12 Pulse 63 Pulse Source Pulse Oximeter Temp 97.6 F Temp Source Oral Pulse Oximetry (%) 99 Oxygen Delivery Method Room Air Intake Visit Reasons: routine fu HLD hypothyroid VIt D Intake Note: Routine follow up to review labs [place] Required: No Allergies shellfish derived [SHELLFISH DERIVED] Allergy (Severe, Verified 09/20/24 10:55) ANAPHYLAXIS levothyroxine sodium Adverse Reaction (Intermediate, Verified 09/20/24 10:55) hair loss, dry skin Medication List - Last Reconciled 09/20/24 by SURESH Mora-SIA calcium polycarbophil (FiberCon) 625 mg PO DAILY 30 days cholecalciferol (vitamin D3) 125 mcg PO DAILY docusate sodium 100 mg PO BID PRN 30 days multivit with min-folic acid 120 mcg (Women's Multivitamin Gummies) tabs PO nystatin 1 appl topical BID omeprazole 40 mg PO DAILY 90 days sennosides 17.2 mg (2 x 8.6 mg) PO BEDTIME Synthroid (levothyroxine) 75 mcg PO QAM NS Tobacco use date assessed: 09/20/24 Dental Screening Dental Screen Date: 09/20/24 Did you have a dental visit in the last 12 months?: Yes Did you have a dental problem in the last 6 months where you did not have access to dental care?: No Was dental information given to patient?: Patient has dentist HPI HPI Comments History of Present Illness Details 44-year-old female with chronic GERD, chronic constipation, hyperlipidemia, impaired fasting glucose, hypothyroidism, nontoxic multinodular goiter, vitamin-D deficiency, , moderate diverticulosis, colon polyp, hx of ovarian cysts, endometriosis, seasonal allergies, INGA on CPAP Health Maintenance: Colon 01/25/21, moderate diverticulosis, colon polyp repeat 5 years Mammo 2020 Tdap 2015 Flu declined 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 - Hypothyroidism monitored with stable TSH, no dose change in medication. - Vitamin D level improved, currently off supplementation with plans to resume in December. - Allergic rhinitis poorly controlled, Zyrtec provides limited relief, experiencing tachycardia with other medications. - Sleep apnea symptoms managed with CPAP, current machine issues affecting usage. Water in tube; allergies make it hard to breathe. I have requested but am waiting on the compliance report. - Reduced A1c from 6.1 to 5.8, done in office today. - Constipation premenstrually due to endometriosis, managed with dietary changes and occasional Alize tea. - Resolved GERD symptoms, gastroenterology follow-up scheduled. Review of Systems - Respiratory: Reports severe allergy symptoms, currently using Zyrtec. - Cardiovascular: Denies palpitations with Zyrtec but reports tachycardia with other medications. - Endocrine: Reports stable management of hypothyroidism. - Gastrointestinal: Reports constipation premenstrually managed with dietary changes; reports resolved GERD symptoms. - Neurological: Denies current usage issues with CPAP machine due to allergies. - Hematology: Reports blood glucose management with reduced A1c from 6.1 to 5.8. Exam: General: Well developed, well nourished, in no acute distress. Appears stated age. Head: Normocephalic, atraumatic. Eyes: Pupils are equal, round and reactive to light and accommodation. Conjunctivae are clear. Vision grossly normal. pterygium left eye nasal aspect Neck: Supple, no adenopathy, + thyromegaly. Lungs: Clear to auscultation bilaterally. No rales, rhonchi or wheeze noted. Good air flow in all shabazz. Heart: Regular rate and rhythm. No murmurs, click, rubs or gallops are noted. Pulses: Peripheral pulses are equal and palpable bilaterally. Extremities: No clubbing, cyanosis nor edema is noted. Neurologic: Gait and station normal. Cranial Nerves 2-12 intact. Motor strength grossly symmetrical and intact. No sensory loss. Balance normal. Skin: No rashes, ulcers, or lesions noted. Turgor is good. Skin color is good. Hair and nails are without abnormalities. Psych: Normal eye contact, affect and mood appropriate, and normal interactions. Patient is alert and appropriate to context. Results - Labs: Cholesterol: Total 210 mg/dL, LDL 135 mg/dL, Triglycerides normalized. TSH 0.37. Vitamin D 32 ng/mL. A1c 5.8. - Labs: Cholesterol: Total 210 mg/dL, LDL 135 mg/dL, Triglycerides normalized. TSH 0.37. Vitamin D 32 ng/mL. A1c 5.8. Discussion Notes During the visit, I praised the patient's successful lifestyle modifications in managing hyperlipidemia. We discussed the current stability of her hypothyroid condition with no necessary changes in thyroid medication. We evaluated her decision to pause vitamin D supplementation and plan to restart before the reduced daylight season. Regarding allergic rhinitis, I advised on her Zyrtec use while avoiding medication linked to tachycardia, suggesting further allergy evaluation. For sleep apnea, I recommended contacting the provider for CPAP machine servicing due to water leakage issues. The recent reduction in A1c from 6.1 to 5.8 was discussed as a sign of improved blood glucose control, though emphasized continued monitoring. For constipation related to endometriosis, dietary adjustments proved effective, with use of [place] tea as needed, maintaining the balance to ensure no dependency develops. Addressing her concern with GERD, I assured that her symptoms remain controlled, and we acknowledged an upcoming photo producer appointment. We emphasized continued attention to the timing of appointments due to insurance coverage. Assessment and Plan 1. Hyperlipidemia - Continued lifestyle modifications. - Re-evaluation in the next visit. 2. Hypothyroidism - Maintain levothyroxine regimen. - Periodic TSH monitoring. 3. Vitamin D Deficiency - Restart supplementation in December. 4. Allergic Rhinitis - Continued Zyrtec use. - Allergy follow-up pending. 5. Sleep Apnea - Address CPAP machine issues with the provider. - compliance report pending 6. Constipation due to Endometriosis - Dietary modifications. - Use [place] tea cautiously. 7. History of Elevated Blood Glucose Levels - Continued monitoring. - Lifestyle management. Patient Instructions - Continue with cholesterol-friendly diet and activities. - Follow up with the lamp tester and inspector as scheduled. - Use CPAP machine as tolerated, contact provider for service if needed. - Monitor blood sugar levels as discussed. - Resume vitamin D in December; enjoy sunlight exposure safely. - Use Alize tea sparingly for constipation and continue dietary changes. - Schedule next appointment after March 07 for annual check-up. Consent Patient was informed and verbally consented to the use of an ambient scribe for clinic note documentation during this visit. Total time spent caring for the patient today was 40 minutes. This includes time spent before the visit reviewing the chart, time spent during the visit, and time spent after the visit on documentation, reviewing laboratory results, diagnostic imaging, medications, performing a medically necessary evaluation, counseling on diagnoses, care coordination, ordering appropriate tests, ordering appropriate medications, review of tests performed by other providers, reporting test results with the patient, communication with other healthcare providers. [facility] Medical History (Updated 05/17/24 @ 14:11 [facility] Constipation by delayed colonic transit Daytime somnolence Dyslipidemia Elevated fasting glucose Family history of diabetes mellitus GERD (gastroesophageal reflux disease) H. pylori infection Hypothyroidism Hypovitaminosis D Non-toxic multinodular goiter Physical exam Surgical History (Updated 09/21/24 @ 12:20 by [facility] History of laparoscopy Hx of colonoscopy (~2011) Family History Father Asthma Mother No problems noted. Maternal Aunt Uterine cancer Brother Murder Sister Fibromyalgia Sister Lung collapse Maternal Grandmother Diabetes Stroke Paternal Aunt Diabetes Hypertension Maternal Uncle Cancer Social History Housing: Apartment Alcohol intake: never Patient Tobacco Use Status: Never used Tobacco Tobacco use type: Cigarette e-Cigarette/Vaping Use: Never Used Second Hand Smoke Exposure: No service: No Current occupational status: unemployed Cognitive needs: No Hearing needs: No Vision needs: No Questionnaire Thrive Questionnaire Date Thrive assessed: 03/06/24 I am a: Patient What is your living situation today?: I have a steady place to live Within the past 12 months, did the food you bought not last and you didn't have the money to get more?: Never true Within the past 12 months, did you worry whether your food would run out before you got money to buy more?: I choose not to answer this question Do you have trouble paying for medicines?: No Do you have trouble getting transportation to medical appointments?: No Do you have trouble paying your heating and electricity bill?: No Do you have trouble taking care of your child, family member or friend?: No Do you have trouble with day-to-day activities such as bathing, preparing meals, shopping, managing finances, etc.?: No Are you currently unemployed and looking for a job?: No Are you interested in more education?: Yes Please select the resources that you would like help with: Education Currently or been in a relationship where the following occur: No concerns reported THRIVE Score: 0 EDA-7 AMB Questionnaire EDA-7 Date EDA - 7 assessed: 05/17/24 Source: Developed by Drs. Hayder Golden, Ida Warner, Geoff Lakhani and colleagues, with an educational steve from [employer]. Physical exam (Primary Care) Vital Signs: Last Vital Signs Temp 97.6 F 09/20/24 10:57 Pulse 63 09/20/24 10:57 Resp 12 09/20/24 10:57 BP 118/68 09/20/24 10:57 Pulse Ox 99 09/20/24 10:57 Oxygen Delivery Method Room Air 09/20/24 10:57 BMI result Body Mass Index 27.3 Tobacco/Smoking Status: Tobacco use Status Tobacco use date assessed 09/20/24 09/20/24 10:58 Patient Tobacco Use Status Never used Tobacco 09/20/24 10:54 Tobacco use type Cigarette 09/20/24 10:54 e-Cigarette/Vaping Use Never Used 09/20/24 10:54 Thrive Assessment: Date of Thrive Assessment Date Thrive assessed 03/06/24 09/20/24 10:54 Currently or been in a relationship where the following occur: No concerns reported Results AMB Hemoglobin A1c AMB Hemoglobin A1c 5.8 % Last Edit by Casey Snow MA on 09/20/24 11:22 Results Reviewed Results Reviewed: Laboratory Last Values Hgb A1c (Clinic) 5.8 % (4.0-6.0) 09/20/24 11:16 09/2024, improved labs. 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's thyroiditis INGA on CPAP G47.33 Prediabetes R73.03 Constipation by delayed colonic transit K59.01 Irritable bowel syndrome with both constipation and diarrhea K58.2 Seasonal allergies J30.2 Assessment & Plan Assessment & Plan (1) Dyslipidemia: Code(s): E78.5 - Hyperlipidemia, unspecified Category: Medical (2) Hypovitaminosis D: Code(s): E55.9 - Vitamin D deficiency, unspecified Category: Medical (3) Hypothyroidism: Code(s): E03.9 - Hypothyroidism, unspecified Category: Medical Qualifiers: 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 Orders: Orders Comprehensive Met. Panel 09/20/24 E55.9 - Vitamin D deficiency, unspecified, E78.5 - Hyperlipidemia, unspecified, R73.03 - Prediabetes Lipid Panel 01/05/25 E55.9 - Vitamin D deficiency, unspecified, E78.5 - Hyperlipidemia, unspecified, R73.03 - Prediabetes TSH reflex Free T4 01/12/25 E55.9 - Vitamin D deficiency, unspecified, E78.5 - Hyperlipidemia, unspecified, R73.03 - Prediabetes Vitamin B12 and Folate 09/20/24 E55.9 - Vitamin D deficiency, unspecified, E78.5 - Hyperlipidemia, unspecified, R73.03 - Prediabetes AMB Hemoglobin A1c 09/20/24 R73.03 - Prediabetes, Z13.9 - Encounter for screening, unspecified Comprehensive [place]. Panel Fast 09/20/24 E55.9 - Vitamin D deficiency, unspecified, E78.5 - Hyperlipidemia, unspecified, R73.03 - Prediabetes Hemoglobin A1c 09/20/24 E55.9 - Vitamin D deficiency, unspecified, E78.5 - Hyperlipidemia, unspecified, R73.03 - Prediabetes Microalbumin, Random (w Creat) 09/20/24 E55.9 - Vitamin D deficiency, unspecified, E78.5 - Hyperlipidemia, unspecified, R73.03 - Prediabetes Vitamin D 25-OH Total 01/12/25 E55.9 - Vitamin D deficiency, unspecified, E78.5 - Hyperlipidemia, unspecified, R73.03 - Prediabetes Referrals Integrative Medicine Referral K58.2 - Mixed irritable bowel syndrome, K59.01 - Slow transit constipation Medications: Refilled Synthroid (levothyroxine) 75 mcg PO QAM 90 tabs 2RF NS E03.9 - Hypothyroidism, unspecified Discontinued calcium polycarbophil (FiberCon) Discontinued Reason: Patient Completed Course 625 mg PO DAILY 30 days 30 tabs 2RF F41.9 - Anxiety disorder, unspecified sennosides Discontinued Reason: Patient Completed Course 17.2 mg (2 x 8.6 mg) PO BEDTIME 60 tabs 6RF K58.2 - Mixed irritable bowel syndrome docusate sodium Discontinued Reason: Patient Completed Course 100 mg PO BID 30 days PRN 60 caps 6RF constipation K58.2 - Mixed irritable bowel syndrome omeprazole Discontinued Reason: Patient no longer taking 40 mg PO DAILY 90 days 90 caps 2RF A04.8 - Other specified bacterial intestinal infections
[2024-09-20 10:57] VITALS: BP 118/68; PULSE 63; RESP 12; TEMP 36.4; O2SAT 99; BMI 27.3
== END 2024-09-20 11:34 | disposition home or self-care (01) ==
LOC: HO.HMCFM 10:51
PROVIDERS: PCP Nurse Practitioner Family; Visit Provider Nurse Practitioner Family
DX: E78.5 Hyperlipidemia, unspecified (principal); E55.9 Vitamin D deficiency, unspecified; E03.8 Other specified hypothyroidism; E06.3 Autoimmune thyroiditis; G47.33 Obstructive sleep apnea (adult) (pediatric); R73.03 Prediabetes; K59.01 Slow transit constipation; K58.2 Mixed irritable bowel syndrome; J30.2 Other seasonal allergic rhinitis

== ENCOUNTER → 2024-09-20 10:50 | Outpatient (BNVA) | payer OTHER, SELFPAY | PROVIDERS: PCP Nurse Practitioner Family; Visit Provider Nurse Practitioner Family | DX: K21.9 Gastro-esophageal reflux disease without esophagitis (principal); E78.5 Hyperlipidemia, unspecified; E03.9 Hypothyroidism, unspecified; E55.9 Vitamin D deficiency, unspecified; K59.09 Other constipation; R73.01 Impaired fasting glucose; K57.90 Diverticulosis of intestine, part unspecified, without perforation or abscess without bleeding; G47.33 Obstructive sleep apnea (adult) (pediatric); G47.30 Sleep apnea, unspecified; E03.8 Other specified hypothyroidism; E06.3 Autoimmune thyroiditis; R73.03 Prediabetes; K59.01 Slow transit constipation; K58.2 Mixed irritable bowel syndrome; J30.2 Other seasonal allergic rhinitis; Z99.89 Dependence on other enabling machines and devices | CPT/HCPCS: 83036 ==

== ENCOUNTER 2024-11-28 11:57 | Outpatient (REF) | payer OTHER, SELFPAY ==
[2024-11-28 12:47] LABS: MANUAL DIFF FLAG NO
[2024-11-28 13:23] LABS: Hematocrit 39.8 % (37.0-47.0); Hemoglobin 12.7 g/dl (12.0-16.0); Imm Gran Abs Auto 0.01 X10*3/uL (0.00-0.03); Imm Gran Pct Auto 0.2 % (0.0-0.4); Lymphocytes Absolute Auto 1.6 X10*3/uL (1.2-4.9); Mean Corpuscular HGB Conc 31.9 g/dl (31.0-35.0); Mean Corpuscular Hemoglobin 26.6 pg (27.0-33.0); Mean Corpuscular Volume 83.3 fL (80.0-98.0); NRBC Abs Auto 0.000 X10*3/uL (0.0-0.012); NRBC Pct Auto 0.0 /100WBC (0.0-0.2); Platelet Count 221 X10*3/uL (160-400); Red Blood Count 4.78 X10*6/uL (4.20-5.50); White Blood Count 5.3 X10*3/uL (4.8-10.8)
[2024-11-28 14:03] LABS: Alanine Aminotransferase 27 U/L (0-31); Albumin Level 4.6 g/dL (3.5-5.0); Alkaline Phosphatase 54 U/L (39-117); Anion Gap 12 (12-20); Aspartate Amino Transferase 34 U/L (5-31); Blood Urea Nitrogen 12 mg/dL (9-16); Calcium 9.3 mg/dL (8.4-10.2); Carbon Dioxide 26 mmol/L (22-29); Chloride 103 mmol/L (96-108); Estimated Glomerular Filt Rate > 60; Potassium 3.8 mmol/L (3.3-5.1); Sodium 137 mmol/L (135-145); Total Protein 7.4 g/dL (6.5-8.0)
== END 2024-11-28 11:58 | disposition home or self-care (01) ==
LOC: HO.LAB 11:57
PROVIDERS: PCP Nurse Practitioner Family; Visit Provider Nurse Practitioner
DX: K21.9 Gastro-esophageal reflux disease without esophagitis (principal); K59.01 Slow transit constipation; R10.13 Epigastric pain; R11.0 Nausea; R10.10 Upper abdominal pain, unspecified
CPT/HCPCS: 36415; 80053; 84443; 85025

== ENCOUNTER 2024-11-28 11:57 | Outpatient (AMB) | payer OTHER, SELFPAY ==
--- NOTE | 2024-11-28 11:59 | MHC.OFFVIS ---
Vital Signs 11/28/24 12:04 Height 5 ft 3 in Weight 151 lb BMI 26.7 BP 106/84 Blood Pressure Location Rt brachial Position Sitting Pulse 70 Pulse Source Pulse Oximeter Pulse Oximetry (%) 99 Oxygen Delivery Method Room Air Intake Visit Reasons: stomach pain l/s 07/2021 Intake Note: New/Returning pt for eval of abd pain. CC: C.O. intermittent epigastric pain and nausea. Pt believes that these sx are primarily diet related and they don't occur very often. Pt is generally wanting to check in and ensure that any preventative measures or diagnostics are taken. Boiling Off Winder Required: No Accompanied by: Self / Same As Patient Allergies shellfish derived (SHELLFISH DERIVED) Allergy (Severe, Verified 11/28/24 12:00) ANAPHYLAXIS levothyroxine sodium Adverse Reaction (Intermediate, Verified 11/28/24 12:00) hair loss, dry skin HPI HPI stomach pain l/s 07/2021: Details: 44-year-old female not seen since 2021 here for a new evaluation of abdominal pain. Her primary care provider is Opal Matt. PMX INGA Pre diabetes Hypothyroid High cholesterol GERD Constipation Tubular adenoma * SURGICAL HISTORY Colonoscopy-2011 [place] Laparoscopy due to endometriosis * ALLERGIES Shellfish Levothyroxine sodium * RecommendiTECH LABS: None recent except cholesterol and A1c My last note in 2021 as as follows: Assessment & Plan (1) GERD (gastroesophageal reflux disease): ?Code(s): K21.9 - Gastro-esophageal reflux disease without esophagitis ?Plan: She continues to try to manage her bowels with diet and fluids. She notices that when she does not drink enough, she will get constipated. If she really does not move her bowels she will have dyspepsia or nausea, but the senna/colace work well when she needs them. She continues on her omeprazole, but at times forgets. She was told her cholesterol was on the high side, so she is trying to eat more healthfully and more fruits. We discuss the impact of inflation on eating healthfully. ROV 6 mos. (2) Constipation by delayed colonic transit: ?Code(s): K59.01 - Slow transit constipation ? ? ? Medications: Refilled omeprazole 40 mg? PO DAILY 90 days 90 caps 2RF A04.8 - Other specified bacterial intestinal infections ? [facility] VISIT [facility] Medical History (Updated 11/28/24 @ 12:10 by CHAY Serraot) Daytime somnolence H. pylori infection Dyslipidemia Elevated fasting glucose Non-toxic multinodular goiter Family history of diabetes mellitus Physical exam GERD (gastroesophageal reflux disease) Hypovitaminosis D Constipation by delayed colonic transit Hypothyroidism Surgical History (Updated 11/28/24 @ 12:06 by YOLA Rush) Hx of colonoscopy (~2011) History of laparoscopy Family History Father Asthma Mother No problems noted. Maternal Aunt Uterine cancer Brother Murder Sister Fibromyalgia Sister Lung collapse Maternal Grandmother Diabetes Stroke Paternal Aunt Diabetes Hypertension Maternal Uncle Cancer Social History Housing: Apartment Alcohol intake: never Patient Tobacco Use Status: Never used Tobacco Tobacco use type: Cigarette e-Cigarette/Vaping Use: Never Used Second Hand Smoke Exposure: No service: No Current occupational status: unemployed Cognitive needs: No Hearing needs: No Vision needs: No Review of Systems Const Denies fatigue, Denies fever(s), Denies night sweats, Denies poor appetite and Denies weight loss ENT Reports Normal hearing present, Denies dental pain, Denies dysphagia, Denies hearing loss, Denies mouth pain, Denies odynophagia, Denies throat swelling, Denies tongue swelling and Reports other (Dentition adequate) Card Reports no additional complaints Resp Reports no additional complaints GI Details: Reports abdominal pain, Denies melena, Denies bloating, Denies hematochezia, Reports constipation, Denies GI cramping, Denies dysphagia, Denies excessive flatus, Denies early satiety, Reports heartburn, Denies diarrhea, Denies nausea, Denies odynophagia, Denies vomiting and Denies hematemesis Skin/Breast Denies pruritus, Denies lesions, Denies rash and Denies jaundice Neuro Reports Normal hearing present and Denies Abnormal speech present Endo Denies fatigue Aller/Immun Denies throat swelling and Denies tongue swelling Physical Exam Vital Signs: Last Vital Signs Pulse 70 11/28/24 12:04 BP 106/84 11/28/24 12:04 Pulse Ox 99 11/28/24 12:04 Oxygen Delivery Method Room Air 11/28/24 12:04 BMI result Body Mass Index 26.7 Const General: cooperative, no acute distress, well developed and well groomed Nutritional Appearance: average body habitus and well nourished Orientation/consciousness: oriented to person, oriented to place and oriented to time Limitations: No language barrier HEENT Head: Yes normocephalic and Yes atraumatic Eyes General: appearance normal, both eyes and all related structures Pupils: Equal, round and reactive pupils present Neck Neck: Yes normal visual inspection and Yes no lymphadenopathy Thyroid: Thyroid normal Resp Effort & Inspection: normal respiratory effort and able to speak in complete sentences Auscultation: clear to auscultation bilaterally Cardio Rate: regular rate Rhythm: regular rhythm Heart sounds: Normal, physiologic split S2 sound present Peripheral pulses: radial pulses present and posterior tibial pulses present GI Inspection: No distended and No Abdominal panniculus present Palpation (GI): Soft to palpation, nontender, no guarding, not rigid and No hepatosplenomegaly present Percussion: Yes normal to percussion Auscultation: normal bowel sounds Rectal Exam - Female: deferred Skin General skin exam: no rashes or lesions noted, turgor normal, skin not dry, no jaundice, No spider nevi and no striae Rashes: no rashes Nails: normal Neuro General: oriented to person, oriented to place and oriented to time Cranial nerves: Yes Equal, round and reactive pupils present and Yes Normal hearing present Speech: No Abnormal speech present Extrem General: Yes normal to inspection, No clubbing, No cyanosis and No edema Psych Appearance: grossly normal and well kempt Mental Status: mental status grossly normal Speech and movement: Normal speech and movement present Affect: normal affect Attitude: cooperative Thought process: Normal thought process present and not confabulating Thought content: Normal thought content present Insight: Good insight present (Psych) Judgement: Good judgement present (Psych) Assessment & Plan Assessment & Plan (1) Upper abdominal pain: Code(s): R10.10 - Upper abdominal pain, unspecified Category: Medical Plan History of Present Illness - The patient is a 44-year-old female presenting with epigastric pain. We saw her for GERD and constipation in 2021 and she has been lost to follow-up since. - Onset of pain followed food ingestion in early August, characterized as stabbing, intense (8/10), and localized to the epigastrium. - Lasted about a day, with notable impact on sleep and daily activities. - No associated nausea or vomiting was initially noted; possible diarrhea afterwards. - Pain was not alleviated by drinking tea and subsided by the following morning. - Family history relevant for stomach conditions. She is uncertain if there is any gallbladder disease. - History of constipation and GERD currently managed with omeprazole and senna tea. - Schedule blood work and gallbladder ultrasound. - Maintain Omeprazole regimen for GERD management. - Use Alize tea for constipation as needed, especially around ovulation. - Follow up in six weeks for reassessment. Patient was informed and verbally consented to the use of an ambient scribe for clinic note documentation during this visit. Fortunately, this was a 1 time episode and has not recurred and patient can not remember what she may have eaten to precipitate this. However we will do a workup just for her general reassurance. Return office visit in 6 weeks Orders: Orders US abdomen complete Today R10.10 - Upper abdominal pain, unspecified Comprehensive Met. Panel Today R10.10 - Upper abdominal pain, unspecified Complete Blood Count Auto Diff Today R10.10 - Upper abdominal pain, unspecified TSH reflex Free T4 Today R10.10 - Upper abdominal pain, unspecified Coding Level of Care Code New Pt Level 3 (20780) Diagnoses Upper abdominal pain R10.10
[2024-11-28 12:04] VITALS: BP 106/84; PULSE 70; O2SAT 99; BMI 26.7
== END 2024-11-28 12:28 | disposition home or self-care (01) ==
LOC: HO.HGI 11:58
PROVIDERS: PCP Nurse Practitioner Family; Visit Provider Nurse Practitioner
DX: R10.10 Upper abdominal pain, unspecified (principal)
CPT/HCPCS: 99203

== ENCOUNTER 2025-02-20 10:30 | Outpatient (REF) | payer OTHER, SELFPAY ==
--- NOTE | ~2025-02-20 | US_ITS ---
CLINICAL HISTORY: R10.10 - Upper abdominal pain, unspecified US abdomen complete Comparison: None provided Findings: The visualized pancreas is normal. The aorta and inferior vena cava are normal caliber. The appearance of the liver suggests fatty infiltration. There is no intrahepatic bile duct dilatation. The common duct is 3.0 mm in diameter. The gallbladder is normal. There is no sonographic Ye sign. The main portal vein is antegrade. The right kidney is 9.8 cm in length. The left kidney is 11.4 cm in length. The spleen is normal. No ascites. IMPRESSION: 1. Hepatic steatosis. This document has been electronically signed by: Isrrael Dang MD on 02/21/2025 11:36:04
== END 2025-02-20 10:31 | disposition home or self-care (01) ==
LOC: HO.US 10:30
PROVIDERS: PCP Nurse Practitioner Family; Visit Provider Nurse Practitioner
DX: R10.10 Upper abdominal pain, unspecified (principal)
CPT/HCPCS: 76700

== ENCOUNTER → 2025-02-20 10:31 | Outpatient (BNV) | payer OTHER, SELFPAY | PROVIDERS: PCP Nurse Practitioner Family; Visit Provider Specialist | DX: K76.0 Fatty (change of) liver, not elsewhere classified (principal) | CPT/HCPCS: 76700 ==